=== PATIENT | female | born 1975 | race Caucasian/White ===

== ENCOUNTER 2022-08-12 13:46 | Inpatient (IN) | payer MEDICAID ==
[~2022-08-12] VITALS: Ht 152.4 cm; Wt 77.2 kg
[~2022-08-12 13:46] MED LIST: ONDA4TAB12 PO
[2022-08-12 14:16] LABS: BASOPHILS # (AUTO) 0.1 X10'3 (0-0.2); BASOPHILS % (AUTO) 0.8 % (0-1); EOSINOPHILS # (AUTO) 0.2 X10'3 (0-0.9); EOSINOPHILS % (AUTO) 3.3 % (0-6); HEMATOCRIT 41.7 % (35.0-45.0); HEMOGLOBIN 13.7 g/dl (12.0-16.0); LYMPHOCYTES % (AUTO) 30.7 % (21-51); MEAN CORPUSCULAR HEMOGLOBIN 29.8 PG (27.0-31.0); MEAN CORPUSCULAR VOLUME 90.5 FL (78-98); MEAN PLATELET VOLUME 8.9 FL (7.4-10.4); MONOCYTES # (AUTO) 0.5 X10'3 (0-0.9); MONOCYTES % (AUTO) 7.1 % (2-12); NEUTROPHILS # (AUTO) 3.8 X10'3 (1.8-7.7); NEUTROPHILS % (AUTO) 58.1 % (42-75); PLATELET COUNT 306 X10'3 (140-440); RED BLOOD COUNT 4.61 X10'6 (4.20-5.60); RED CELL DISTRIBUTION WIDTH 17.7 % (11.5-14.5); WHITE BLOOD COUNT 6.5 X10'3 (4.5-11.0)
[2022-08-12 14:33] LABS: ALANINE AMINOTRANSFERASE 36 U/L (12-78); ALBUMIN 3.4 G/DL (3.4-5.0); ALBUMIN/GLOBULIN RATIO 0.7 (1.1-1.5); ALKALINE PHOSPHATASE 126 IU/L (46-116); ANION GAP 7 (8-16); ASPARTATE AMINO TRANSFERASE 40 U/L (10-37); BILIRUBIN,TOTAL 0.7 MG/DL (0.1-1.0); BLOOD UREA NITROGEN 11 MG/DL (7-18); BUN/CREATININE RATIO 8.5 (6.6-38.0); CALCIUM 9.1 MG/DL (8.5-10.1); CHLORIDE 106 MMOL/L (99-107); CREATININE 1.29 MG/DL (0.40-0.90); MAGNESIUM 1.6 MG/DL (1.5-2.4); POTASSIUM 3.8 MMOL/L (3.5-5.1); SODIUM 137 MMOL/L (135-145); TOTAL PROTEIN 8.2 G/DL (6.4-8.2); eGFR 44 ML/MIN
[2022-08-12 14:40] LABS: GLUCOSE 114 MG/DL (70-104)
[2022-08-12 18:11] LABS: D-DIMER 0.71 MG/L FEU (0-0.50)
[2022-08-12 19:54] LABS: APTT 26 SECONDS (22-32)
[2022-08-12] MEDS ORDERED: potassium Cl 40MEQ/1/2NS 520ml 520 ML IV PRN (21:45)
[2022-08-12] MEDS ORDERED: magnesium hydroxide 30ml (MOM) UD suspension PO PRN (21:45)
[2022-08-12] MEDS ORDERED: magnesium Cl slow-release 64mg tablet PO PRN (21:45)
[2022-08-12] MEDS ORDERED: ondansetron/PF 4mg/2ml inj IV PRN (21:45)
[2022-08-12] MEDS ORDERED: morphine 2 MG/ML inj. syringe IV PRN ×2 (21:45)
[2022-08-12] MEDS ORDERED: mag hydrox/Alum hydrox/simeth 30ml oral suspension PO PRN (21:45)
[2022-08-12] MEDS ORDERED: HYDROcodone/acetaminophen 10/325mg tab PO PRN (21:45)
[2022-08-12] MEDS ORDERED: HYDROcodone/acetaminophen 5mg/325mg tablet PO PRN (21:45)
[2022-08-12] MEDS ORDERED: potassium Cl 20 mEq SR tablet PO PRN ×2 (21:45)
[2022-08-12] MEDS ORDERED: magnesium 4gm in 100ml NS 100 ML IV PRN (21:45)
[2022-08-12] MEDS ORDERED: ipratropium/albuterol 3ml nebule NEB PRN (21:45)
[2022-08-12] MEDS ORDERED: acetaminophen 325mg tablet PO PRN (21:45)
[2022-08-12] MEDS ORDERED: ceFAZolin 1000mg inj IV SCH ×2 (22:50→22:57)
[2022-08-12] MEDS ORDERED: CefTRIAXone/D5W-Rocephin 1gm 50 ML IV SCH ×2 (23:25→23:29)
[2022-08-12 23:50] VITALS: BP 170/110
--- NOTE | 2022-08-13 00:16 | NUR ---
notified of pts b/p of 170/110.new order to give iv hydralazine 10mg prn 4hrly for b/p morethan 160
[2022-08-13] MEDS: hydrALAZINE 20mg/ml inj. IV PRN ×2 (00:23→17:06)
[2022-08-13] MEDS: ceFAZolin/D5W- 1GM premix 50 ML IV SCH ×3 (01:06→17:07)
[2022-08-13 01:14] VITALS: BP 151/90
[2022-08-13 02:00] VITALS: BP 148/85
[2022-08-13] MEDS ORDERED: LEVO137T2 PO (05:16)
[2022-08-13 06:00] VITALS: BP 131/81
[2022-08-13 06:29] LABS: BASOPHILS % (AUTO) 0.6 % (0-1); EOSINOPHILS # (AUTO) 0.3 X10'3 (0-0.9); EOSINOPHILS % (AUTO) 4.6 % (0-6); LYMPHOCYTES # (AUTO) 2.3 X10'3 (1.1-4.8); LYMPHOCYTES % (AUTO) 34.7 % (21-51); MEAN CORPUSCULAR HEMOGLOBIN 29.1 PG (27.0-31.0); MEAN CORPUSCULAR HGB CONC 32.4 g/dL (33.0-36.5); MEAN CORPUSCULAR VOLUME 89.9 FL (78-98); MEAN PLATELET VOLUME 8.8 FL (7.4-10.4); MONOCYTES # (AUTO) 0.6 X10'3 (0-0.9); MONOCYTES % (AUTO) 8.3 % (2-12); NEUTROPHILS # (AUTO) 3.5 X10'3 (1.8-7.7); NEUTROPHILS % (AUTO) 51.8 % (42-75); PLATELET COUNT 282 X10'3 (140-440); RED BLOOD COUNT 4.45 X10'6 (4.20-5.60); RED CELL DISTRIBUTION WIDTH 17.2 % (11.5-14.5); WHITE BLOOD COUNT 6.7 X10'3 (4.5-11.0)
--- NOTE | 2022-08-13 06:56 | NUR ---
Problems reprioritized. Patient report given, questions answered & plan of care reviewed with cyndy HUTTON.
[2022-08-13] MEDS ORDERED: levoTHYROXINE 100mcg tablet PO SCH (07:00)
[2022-08-13 07:13] LABS: ALANINE AMINOTRANSFERASE 27 U/L (12-78); ALBUMIN 2.9 G/DL (3.4-5.0); ALBUMIN/GLOBULIN RATIO 0.7 (1.1-1.5); ALKALINE PHOSPHATASE 113 IU/L (46-116); ANION GAP 10 (8-16); ASPARTATE AMINO TRANSFERASE 35 U/L (10-37); BILIRUBIN,TOTAL 0.5 MG/DL (0.1-1.0); BLOOD UREA NITROGEN 9 MG/DL (7-18); BUN/CREATININE RATIO 7.5 (6.6-38.0); CALCIUM 8.6 MG/DL (8.5-10.1); CHLORIDE 109 MMOL/L (99-107); MAGNESIUM 1.4 MG/DL (1.5-2.4); POTASSIUM 3.5 MMOL/L (3.5-5.1); SODIUM 141 MMOL/L (135-145); TOTAL CARBON DIOXIDE 22.4 MMOL/L (24-32); TOTAL PROTEIN 7.2 G/DL (6.4-8.2); eGFR 48 ML/MIN
[2022-08-13 07:21] LABS: GLUCOSE 96 MG/DL (70-104)
[2022-08-13] MEDS: K and/or MAG REPLACEMENT MC SCH ×2 (08:00→18:57)
[2022-08-13] MEDS ORDERED: furosemide 10 MG/1 ML 10ml inj IV SCH (08:00)
[2022-08-13] MEDS: docusate sod 100mg capsule PO SCH ×2 (10:05→19:33)
[2022-08-13] MEDS: enoxaparin 40mg/0.4ml syringe SUBCUT SCH (10:28)
[2022-08-13 12:00] VITALS: BP 144/94
[2022-08-13 16:53] VITALS: BP 157/101
[2022-08-13] MEDS: furosemide 10 MG/1 ML 10ml inj IV SCH (19:30)
[2022-08-13 22:00] VITALS: BP 144/85
[2022-08-14] MEDS: ceFAZolin/D5W- 1GM premix 50 ML IV SCH ×2 (01:17→09:52)
[2022-08-14 01:55] VITALS: BP 147/98
[2022-08-14 06:00] VITALS: BP 149/94
--- NOTE | 2022-08-14 06:33 | NUR ---
Report received from Reina Bishop and will continue to monitor.
[2022-08-14] MEDS: docusate sod 100mg capsule PO SCH (08:00)
[2022-08-14] MEDS ORDERED: levoTHYROXINE 125mcg tablet PO SCH (09:15)
[2022-08-14 09:18] LABS: BASOPHILS % (AUTO) 0.5 % (0-1); EOSINOPHILS # (AUTO) 0.3 X10'3 (0-0.9); EOSINOPHILS % (AUTO) 3.8 % (0-6); HEMATOCRIT 46.8 % (35.0-45.0); HEMOGLOBIN 15.2 g/dl (12.0-16.0); LYMPHOCYTES # (AUTO) 2.9 X10'3 (1.1-4.8); LYMPHOCYTES % (AUTO) 34.3 % (21-51); MEAN CORPUSCULAR HEMOGLOBIN 29.2 PG (27.0-31.0); MEAN CORPUSCULAR HGB CONC 32.4 g/dL (33.0-36.5); MEAN CORPUSCULAR VOLUME 90.1 FL (78-98); MEAN PLATELET VOLUME 9.2 FL (7.4-10.4); MONOCYTES # (AUTO) 0.8 X10'3 (0-0.9); MONOCYTES % (AUTO) 10.2 % (2-12); NEUTROPHILS # (AUTO) 4.3 X10'3 (1.8-7.7); NEUTROPHILS % (AUTO) 51.2 % (42-75); PLATELET COUNT 323 X10'3 (140-440); RED CELL DISTRIBUTION WIDTH 17.4 % (11.5-14.5); WHITE BLOOD COUNT 8.3 X10'3 (4.5-11.0)
[2022-08-14 09:23] LABS: ALANINE AMINOTRANSFERASE 23 U/L (12-78); ALBUMIN 3.2 G/DL (3.4-5.0); ALBUMIN/GLOBULIN RATIO 0.7 (1.1-1.5); ALKALINE PHOSPHATASE 114 IU/L (46-116); ANION GAP 14 (8-16); ASPARTATE AMINO TRANSFERASE 36 U/L (10-37); BILIRUBIN,TOTAL 0.8 MG/DL (0.1-1.0); BLOOD UREA NITROGEN 14 MG/DL (7-18); BUN/CREATININE RATIO 11.1 (6.6-38.0); CALCIUM 9.3 MG/DL (8.5-10.1); CHLORIDE 106 MMOL/L (99-107); CREATININE 1.26 MG/DL (0.40-0.90); GLUCOSE 93 MG/DL (70-104); MAGNESIUM 1.5 MG/DL (1.5-2.4); POTASSIUM 3.2 MMOL/L (3.5-5.1); SODIUM 141 MMOL/L (135-145); TOTAL CARBON DIOXIDE 21.2 MMOL/L (24-32); eGFR 46 ML/MIN
[2022-08-14] MEDS: enoxaparin 40mg/0.4ml syringe SUBCUT SCH (09:53)
[2022-08-14] MEDS: furosemide 10 MG/1 ML 10ml inj IV SCH (11:38)
[2022-08-14 11:45] VITALS: BP 147/97
[2022-08-14 12:41] VITALS: BP 147/98
[2022-08-14] MEDS ORDERED: LEVO150C4 PO (13:34)
[2022-08-14] MEDS ORDERED: FURO20TA4 PO (13:34)
[2022-08-14] MEDS ORDERED: POTA-207 PO (13:34)
[2022-08-14] MEDS ORDERED: CARV3.122 PO (13:34)
== END 2022-08-14 16:20 | disposition home or self-care (01) | DRG 194 ==
LOC: ER 13:47 → ED HOLD 21:51 → PCU 3S 23:39
PROVIDERS: ADMIT Internal Medicine; ATTEND Family Medicine
PROC: CB121ZZ Planar Nuclear Medicine Imaging of Lungs and Bronchi using Technetium 99m (Tc-99m) (ICD-10-PCS; principal; 2022-08-13)
DX: I13.0 Hypertensive heart and chronic kidney disease with heart failure and stage 1 through stage 4 chronic kidney disease, or unspecified chronic kidney disease (principal); L03.115 Cellulitis of right lower limb; E03.9 Hypothyroidism, unspecified; E04.2 Nontoxic multinodular goiter; E78.00 Pure hypercholesterolemia, unspecified; E87.6 Hypokalemia; L03.114 Cellulitis of left upper limb; L03.113 Cellulitis of right upper limb; I50.33 Acute on chronic diastolic (congestive) heart failure; F15.10 Other stimulant abuse, uncomplicated; F12.90 Cannabis use, unspecified, uncomplicated; F17.210 Nicotine dependence, cigarettes, uncomplicated; I07.1 Rheumatic tricuspid insufficiency; L03.116 Cellulitis of left lower limb; N18.9 Chronic kidney disease, unspecified; R74.01 Elevation of levels of liver transaminase levels; Z79.899 Other long term (current) drug therapy; Z90.49 Acquired absence of other specified parts of digestive tract; Z71.6 Tobacco abuse counseling
CPT/HCPCS: 36415; 71045; 76536; 78582; 80053; 83735; 83880; 84439; 84443; 84484; 85025; 85379; 85730; 87081; 93306; 94760; 99285; A9539; A9540; G0378; J0360; J0690; J1650; J1940

== ENCOUNTER 2022-09-24 14:38 | Emergency (ER) | payer MEDICAID ==
[~2022-09-24] VITALS: Ht 154.9 cm; Wt 76.8 kg
[~2022-09-24 14:38] MED LIST changes: +CARV3.122 PO; +FURO20TA4 PO; +LEVO150C4 PO; -ONDA4TAB12 PO
[2022-09-24 15:15] LABS: ALANINE AMINOTRANSFERASE 27 U/L (12-78); ALBUMIN 3.8 G/DL (3.4-5.0); ALBUMIN/GLOBULIN RATIO 0.8 (1.1-1.5); ALKALINE PHOSPHATASE 124 IU/L (46-116); ANION GAP 13 (8-16); ASPARTATE AMINO TRANSFERASE 35 U/L (10-37); BLOOD UREA NITROGEN 12 MG/DL (7-18); BUN/CREATININE RATIO 10.6 (6.6-38.0); CALCIUM 9.7 MG/DL (8.5-10.1); CHLORIDE 106 MMOL/L (99-107); CREATININE 1.13 MG/DL (0.40-0.90); GLUCOSE 112 MG/DL (70-104); POTASSIUM 3.5 MMOL/L (3.5-5.1); SODIUM 142 MMOL/L (135-145); TOTAL CARBON DIOXIDE 22.6 MMOL/L (24-32); TOTAL PROTEIN 8.8 G/DL (6.4-8.2); eGFR 52 ML/MIN
[2022-09-24 15:22] LABS: MAGNESIUM 1.6 MG/DL (1.5-2.4)
[2022-09-24 16:52] LABS: BASOPHILS % (AUTO) 0.5 % (0-1); EOSINOPHILS # (AUTO) 0.1 X10'3 (0-0.9); LYMPHOCYTES # (AUTO) 1.1 X10'3 (1.1-4.8); MEAN CORPUSCULAR HEMOGLOBIN 29.4 PG (27.0-31.0); MEAN PLATELET VOLUME 8.9 FL (7.4-10.4)
[2022-09-24 16:54] LABS: EOSINOPHILS % (AUTO) 1.1 % (0-6); HEMATOCRIT 52.6 % (35.0-45.0); HEMOGLOBIN 17.4 g/dl (12.0-16.0); LYMPHOCYTES % (AUTO) 11.2 % (21-51); MONOCYTES # (AUTO) 0.9 X10'3 (0-0.9); MONOCYTES % (AUTO) 9.3 % (2-12); NEUTROPHILS # (AUTO) 7.4 X10'3 (1.8-7.7); NEUTROPHILS % (AUTO) 77.9 % (42-75); PLATELET COUNT 367 X10'3 (140-440); RED BLOOD COUNT 5.91 X10'6 (4.20-5.60); RED CELL DISTRIBUTION WIDTH 16.3 % (11.5-14.5); WHITE BLOOD COUNT 9.5 X10'3 (4.5-11.0)
[2022-09-24] MEDS ORDERED: albuterol 2.5 MG/3 ML nebule NEB ONE (20:35)
[2022-09-24] MEDS ORDERED: methylPREDNISolone sod succ 125mg/2ml vial IV ONE (21:15)
[2022-09-24] MEDS ORDERED: carvedilol 6.25mg tablet PO SCH (21:15)
[2022-09-24] MEDS ORDERED: carvedilol 6.25mg tablet PO ONE (21:15)
[2022-09-24] MEDS ORDERED: DEC4T PO (21:17)
[2022-09-24] MEDS ORDERED: ALBU6.7H14 INH (21:17)
[2022-09-24] MEDS ORDERED: ipratropium/albuterol 3ml nebule NEB ONE (21:20)
[2022-09-24] MEDS ORDERED: dexamethasone 4mg tablet PO ONE (21:20)
[2022-09-24 22:08] VITALS: BP 109/84
== END 2022-09-24 22:10 | disposition home or self-care (01) ==
LOC: ER 14:39
DX: J45.901 Unspecified asthma with (acute) exacerbation (principal); I11.0 Hypertensive heart disease with heart failure; I50.9 Heart failure, unspecified; E78.00 Pure hypercholesterolemia, unspecified; E03.9 Hypothyroidism, unspecified; F12.90 Cannabis use, unspecified, uncomplicated; Z90.49 Acquired absence of other specified parts of digestive tract
CPT/HCPCS: 36415; 71045; 80053; 83735; 83880; 84484; 85025; 93005; 94640; 96374; 99285; J2930; A4615

== ENCOUNTER 2022-10-14 07:32 | Day surgery (SDC) | payer MEDICAID ==
[2022-10-05 16:03] LABS: BASOPHILS # (AUTO) 0.1 X10'3 (0-0.2); BASOPHILS % (AUTO) 0.6 % (0-1); EOSINOPHILS # (AUTO) 0.2 X10'3 (0-0.9); EOSINOPHILS % (AUTO) 2.4 % (0-6); LYMPHOCYTES # (AUTO) 3.1 X10'3 (1.1-4.8); LYMPHOCYTES % (AUTO) 29.7 % (21-51); MEAN CORPUSCULAR HEMOGLOBIN 29.4 PG (27.0-31.0); MEAN CORPUSCULAR HGB CONC 32.7 g/dL (33.0-36.5); MEAN PLATELET VOLUME 8.6 FL (7.4-10.4); MONOCYTES # (AUTO) 0.7 X10'3 (0-0.9); MONOCYTES % (AUTO) 6.7 % (2-12); NEUTROPHILS # (AUTO) 6.3 X10'3 (1.8-7.7); NEUTROPHILS % (AUTO) 60.6 % (42-75); PRE OP HEMATOCRIT 46.2 % (35.0-45.0); PRE OP HEMOGLOBIN 15.1 g/dL (12.0-16.0); PRE OP PLATELET COUNT 338 X10'3 (140-440); RED BLOOD COUNT 5.13 X10'6 (4.20-5.60)
[2022-10-05 16:23] LABS: ALBUMIN 3.2 G/DL (3.4-5.0); ALBUMIN/GLOBULIN RATIO 0.7 (1.1-1.5); ALKALINE PHOSPHATASE 105 IU/L (46-116); BLOOD UREA NITROGEN 18 MG/DL (7-18); BUN/CREATININE RATIO 17.5 (6.6-38.0); CALCIUM 9.1 MG/DL (8.5-10.1); CHLORIDE 106 MMOL/L (99-107); CREATININE 1.03 MG/DL (0.40-0.90); PRE OP ALT 31 U/L (30-65); PRE OP ANION GAP 6 (8-16); PRE OP AST 45 U/L (10-37); PRE OP BILIRUB, TOTAL 0.4 MG/DL (0.0-1.0); PRE OP GLUCOSE 95 MG/DL (70-104); PRE OP POTASSIUM 4.2 MMOL/L (3.4-5.1); PRE OP SODIUM 138 MMOL/L (135-145); TOTAL CARBON DIOXIDE 25.6 MMOL/L (24-32); TOTAL PROTEIN 7.6 G/DL (6.4-8.2); eGFR 57 ML/MIN
[2022-10-05 16:25] LABS: HCG SERUM QL NEGATIVE
[~2022-10-14] VITALS: Ht 154.9 cm; Wt 76.1 kg
[2022-10-14] VITALS (17 sets, daily range): BP systolic 76–115; BP diastolic 44–80
[~2022-10-14 07:32] MED LIST changes: +ALBU8HFA INH; +BUPIVAcaine/PF 5 mg/ml 10ml ONE; -CARV3.122 PO; +CARV6.2553 PO; +DOCUMENT DATE & TIME OF BETA-BLOCKER PO ONE; +FURO-150 PO; -FURO20TA4 PO; -LEVO150C4 PO; +LEVO175T7 PO; +LISI1TAB53 PO; +POTA-82 PO; +albuterol 2.5 MG/3 ML nebule NEB ONE; +cefazolin 2gm/D5W 100mL 100 ML IV ONE; +famotidine 20mg tablet PO ONE; +ringers solution, lacted 500 ML IV SCH
[2022-10-14] MEDS ORDERED: morphine 4 MG/ML inj SYRINge IV PRN (08:25)
[2022-10-14] MEDS ORDERED: ringers solution, lacted 1,000 ML IV SCH (08:25)
[2022-10-14] MEDS ORDERED: meperidine/PF 25mg/ml syringe IV PRN ×3 (08:25)
[2022-10-14] MEDS ORDERED: morphine 2 MG/ML inj. syringe IV PRN (08:25)
[2022-10-14] MEDS ORDERED: ondansetron/PF 4mg/2ml inj IV PRN (08:25)
[2022-10-14] MEDS ORDERED: proCHLORperazine 10 MG/2 ml inj IV PRN (08:25)
[2022-10-14] MEDS ORDERED: LIDOcaine 0.5% (5mg/ml) 50ml vial ONE (08:31)
[2022-10-14] MEDS ORDERED: albuterol 2.5 MG/3 ML nebule NEB STA ×2 (08:36→08:41)
[2022-10-14] MEDS ORDERED: midazolam 1 mg/ML 2ml injection ONE (09:48)
[2022-10-14] MEDS ORDERED: fentaNYL/PF 50MCG/1 ML 2ML syringe ONE (09:48)
[2022-10-14] MEDS ORDERED: BUPIVAcaine/PF 5 mg/ml 10ml IJ ONE (10:06)
--- NOTE | 2022-10-14 10:11 | NUR ---
Received from OR via [facility], accompanied by Anesthesiologist and report given by DARSHANA Anesthesiologist. PATIENT WAKING UP, DENIES PAIN, V/S WNL, PIV 20G TO RIGHT HAND, LEFT WRIST DRESSING C/D/I. ICE AND ELEVATED LUE. Addendum: 10/14/22 at 1039 by Maury Palacios RN Amended: Links added.
--- NOTE | 2022-10-14 11:49 | NUR ---
ALL DISCHARGE CRITERIA HAS BEEN MET. VSS, PAIN AT A TOLERABLE LEVEL, ABLE TO SAFELY AMBULATE AND TRANSFER SELF. IV TAKEN OUT WITHOUT ANY COMPLICATIONS. ALL DISCHARGE INSTRUCTIONS COVERED WITH PATIENT AND ALL QUESTIONS ANSWERED. PATIENT TAKEN OUT VIA WHEELCHAIR WITH ALL BELONGINGS TO PERSONAL VEHICLE WHERE FAMILY DROVE PATIENT HOME. Addendum: 10/14/22 at 1154 by Maury Palacios RN Amended: Links added.
== END 2022-10-14 11:46 | disposition home or self-care (01) ==
LOC: PAS 07:32
PROVIDERS: ATTEND Orthopaedic Surgery Hand Surgery
DX: G56.02 Carpal tunnel syndrome, left upper limb (principal); I11.0 Hypertensive heart disease with heart failure; I50.9 Heart failure, unspecified; F17.210 Nicotine dependence, cigarettes, uncomplicated; J45.909 Unspecified asthma, uncomplicated; Z87.442 Personal history of urinary calculi; Z90.49 Acquired absence of other specified parts of digestive tract; Z79.899 Other long term (current) drug therapy; Z82.3 Family history of stroke; Z82.5 Family history of asthma and other chronic lower respiratory diseases
CPT/HCPCS: 36415; 64721; 80053; 84703; 85025; 94640; J2250; J3010; J3490; J7030; J7120; Z7506; Z7512; A4215

== ENCOUNTER → 2022-11-11 | Day surgery (SDC) | payer MEDICAID ==
[2022-11-07 15:07] LABS: BASOPHILS # (AUTO) 0.1 X10'3 (0-0.2); BASOPHILS % (AUTO) 0.8 % (0-1); EOSINOPHILS # (AUTO) 0.2 X10'3 (0-0.9); EOSINOPHILS % (AUTO) 3.1 % (0-6); LYMPHOCYTES # (AUTO) 3.2 X10'3 (1.1-4.8); MEAN CORPUSCULAR HEMOGLOBIN 29.7 PG (27.0-31.0); MEAN CORPUSCULAR HGB CONC 33.2 g/dL (33.0-36.5); MEAN CORPUSCULAR VOLUME 89.5 FL (78-98); MEAN PLATELET VOLUME 8.6 FL (7.4-10.4); MONOCYTES # (AUTO) 0.5 X10'3 (0-0.9); MONOCYTES % (AUTO) 6.9 % (2-12); NEUTROPHILS # (AUTO) 3.3 X10'3 (1.8-7.7); NEUTROPHILS % (AUTO) 45.2 % (42-75); PRE OP HEMATOCRIT 45.9 % (35.0-45.0); PRE OP HEMOGLOBIN 15.3 g/dL (12.0-16.0); PRE OP PLATELET COUNT 340 X10'3 (140-440); RED BLOOD COUNT 5.13 X10'6 (4.20-5.60); RED CELL DISTRIBUTION WIDTH 17.2 % (11.5-14.5)
[2022-11-07 15:19] LABS: ALBUMIN 3.6 G/DL (3.4-5.0); ALBUMIN/GLOBULIN RATIO 0.8 (1.1-1.5); ALKALINE PHOSPHATASE 130 IU/L (46-116); BLOOD UREA NITROGEN 16 MG/DL (7-18); BUN/CREATININE RATIO 13.3 (10.0-20.0); CALCIUM 9.3 MG/DL (8.5-10.1); CHLORIDE 106 MMOL/L (99-107); PRE OP ALT 31 U/L (30-65); PRE OP ANION GAP 9 (8-16); PRE OP AST 46 U/L (10-37); PRE OP BILIRUB, TOTAL 0.3 MG/DL (0.0-1.0); PRE OP POTASSIUM 3.8 MMOL/L (3.4-5.1); PRE OP SODIUM 139 MMOL/L (135-145); TOTAL CARBON DIOXIDE 23.7 MMOL/L (24-32); TOTAL PROTEIN 8.4 G/DL (6.4-8.2); eGFR 48 ML/MIN
[2022-11-07 15:30] LABS: PRE OP GLUCOSE 86 MG/DL (70-104)
[2022-11-11] VITALS (7 sets, daily range): BP systolic 89–137; BP diastolic 64–116
[~2022-11-11] VITALS: Ht 154.9 cm; Wt 74.5 kg
[~2022-11-11] MED LIST changes: +BUPIVAcaine/PF 2.5 mg/ml (0.25%) 30ml vial ONE; -BUPIVAcaine/PF 5 mg/ml 10ml ONE; +HYDR25TA5 PO; +LIDOcaine 0.5% (5mg/ml) 50ml vial ONE; -LISI1TAB53 PO; +LISI40TA13 PO; +fentaNYL/PF 50MCG/1 ML 2ML syringe ONE; +meperidine/PF 25mg/ml syringe IV PRN; +midazolam 1 mg/ML 2ml injection ONE; +morphine 2 MG/ML inj. syringe IV PRN; +morphine 4 MG/ML inj SYRINge IV PRN; +ondansetron/PF 4mg/2ml inj IV PRN; +proCHLORperazine 10 MG/2 ml inj IV PRN; +ringers solution, lacted 1,000 ML IV SCH; -ringers solution, lacted 500 ML IV SCH
--- NOTE | 2022-11-11 08:10 | NUR ---
Received from OR via , accompanied by Anesthesiologist DARSHANA AND OR NURSE and report given by Anesthesiolgist. PT IS DROWSY YET ABLE TO FOLLOW VERBAL COMMANDS. RT WRIST IN VALERI WRAP; CDI. 20G TO LT HAND. VSS; O2 DIPS DUE TO PT SEDATION AND EVERDAY SMOKER. Addendum: 11/11/22 at 0830 by Lisbeth Panda RN Amended: Links added.
--- NOTE | 2022-11-11 09:10 | NUR ---
PATIENT A&OX4, DENIES PAIN, V/S WNL, SCD OFF, RIGHT WRIST DRESSING CDI W/ SLING. ICE AND ELEVATED RUE. I HAVE REVIEWED D/C INSTRUCTIONS WITH PATIENT INSTRUCTIONS WITH PATIENT AND THEY HAVE VERBALIZED UNDERSTANDING. PATIENT D/C HOME WITH ALL BELONGINGS AND FAMILY TRANSPORTED PATIENT HOME. Addendum: 11/11/22 at 0918 by Lisbeth Panda RN Amended: Links added.
== END | disposition home or self-care (01) ==
LOC: PAS 05:44
PROVIDERS: ATTEND Orthopaedic Surgery Hand Surgery
DX: G56.01 Carpal tunnel syndrome, right upper limb (principal); I10 Essential (primary) hypertension; E03.9 Hypothyroidism, unspecified; F17.210 Nicotine dependence, cigarettes, uncomplicated; J45.909 Unspecified asthma, uncomplicated; Z87.442 Personal history of urinary calculi; Z79.899 Other long term (current) drug therapy; Z90.49 Acquired absence of other specified parts of digestive tract
CPT/HCPCS: 36415; 64721; 80053; 82948; 85025; J0690; J2250; J3010; J3490; J7030; J7120; Z7506; Z7512; A4215; A4615; A6449

== ENCOUNTER 2023-04-03 09:42 | Emergency (ER) | payer MEDICAID ==
[~2023-04-03] VITALS: Ht 154.9 cm; Wt 75.0 kg
[~2023-04-03 09:42] MED LIST changes: -BUPIVAcaine/PF 2.5 mg/ml (0.25%) 30ml vial ONE; -DOCUMENT DATE & TIME OF BETA-BLOCKER PO ONE; -LIDOcaine 0.5% (5mg/ml) 50ml vial ONE; +POTA-366 PO; -POTA-82 PO; -albuterol 2.5 MG/3 ML nebule NEB ONE; -cefazolin 2gm/D5W 100mL 100 ML IV ONE; -famotidine 20mg tablet PO ONE; -fentaNYL/PF 50MCG/1 ML 2ML syringe ONE; -meperidine/PF 25mg/ml syringe IV PRN; -midazolam 1 mg/ML 2ml injection ONE; -morphine 2 MG/ML inj. syringe IV PRN; -morphine 4 MG/ML inj SYRINge IV PRN; -ondansetron/PF 4mg/2ml inj IV PRN; -proCHLORperazine 10 MG/2 ml inj IV PRN; -ringers solution, lacted 1,000 ML IV SCH
[2023-04-03 09:45] VITALS: TEMP 97.8
[2023-04-03 10:19] LABS: MEAN CORPUSCULAR HEMOGLOBIN 30.6 PG (27.0-31.0); MEAN CORPUSCULAR HGB CONC 33.2 g/dL (33.0-36.5); MEAN CORPUSCULAR VOLUME 92.1 FL (78-98)
[2023-04-03 10:20] LABS: BASOPHILS % (AUTO) 0.4 % (0-1); EOSINOPHILS # (AUTO) 0.1 X10'3 (0-0.9); EOSINOPHILS % (AUTO) 0.9 % (0-6); HEMATOCRIT 49.1 % (35.0-45.0); HEMOGLOBIN 16.3 g/dl (12.0-16.0); LYMPHOCYTES # (AUTO) 1.7 X10'3 (1.1-4.8); LYMPHOCYTES % (AUTO) 16.2 % (21-51); MEAN PLATELET VOLUME 9.6 FL (7.4-10.4); MONOCYTES # (AUTO) 0.6 X10'3 (0-0.9); MONOCYTES % (AUTO) 5.7 % (2-12); NEUTROPHILS % (AUTO) 76.8 % (42-75); PLATELET COUNT 217 X10'3 (140-440); RED BLOOD COUNT 5.33 X10'6 (4.20-5.60); RED CELL DISTRIBUTION WIDTH 15.9 % (11.5-14.5); WHITE BLOOD COUNT 10.4 X10'3 (4.5-11.0)
[2023-04-03 10:31] LABS: ALANINE AMINOTRANSFERASE 65 U/L (12-78); ALBUMIN 3.7 G/DL (3.4-5.0); ALBUMIN/GLOBULIN RATIO 0.8 (1.1-1.5); ALKALINE PHOSPHATASE 118 IU/L (46-116); ANION GAP 10 (8-16); ASPARTATE AMINO TRANSFERASE 63 U/L (10-37); BILIRUBIN,TOTAL 0.8 MG/DL (0.1-1.0); BLOOD UREA NITROGEN 24 MG/DL (7-18); BUN/CREATININE RATIO 15.3 (10.0-20.0); CALCIUM 9.7 MG/DL (8.5-10.1); CHLORIDE 105 MMOL/L (99-107); CREATININE 1.57 MG/DL (0.40-0.90); POTASSIUM 3.5 MMOL/L (3.5-5.1); SODIUM 140 MMOL/L (135-145); TOTAL CARBON DIOXIDE 25.4 MMOL/L (24-32); TOTAL PROTEIN 8.5 G/DL (6.4-8.2); eCRCL 33 ML/MIN; eGFR 35 ML/MIN
[2023-04-03 11:01] LABS: GLUCOSE 123 MG/DL (70-104); PRO BRAIN NATRIURETIC PEPTIDE 4928 PG/ML (0-125)
--- NOTE | 2023-04-03 13:14 | NUR ---
PT BROUGHT TO RM 13 VIA WC BY AUDIOVISUAL EQUIPMENT OPERATOR. PT PLACED ON SUEDE CLEANER ALL LEADS ON AND FUNCTIONING
[2023-04-03] MEDS ORDERED: dexamethasone sod phosphate 10mg/ml inj IV STA ×2 (14:54→15:05)
[2023-04-03] MEDS ORDERED: ondansetron/PF 4mg/2ml inj IV ONE (15:05)
[2023-04-03] MEDS ORDERED: morphine 4 MG/ML inj SYRINge IV ONE (15:05)
[2023-04-03] MEDS ORDERED: colchicine 0.6mg tablet PO ONE (15:50)
[2023-04-03 16:06] VITALS: O2SAT 100
[2023-04-03 18:19] LABS: URIC ACID 11.8 MG/DL (2.5-6.2)
[2023-04-03] MEDS ORDERED: COLC1TAB2 PO (18:25)
[2023-04-03 20:20] VITALS: BP 123/86; PULSE 89; RESP 22
== END 2023-04-03 20:51 | disposition home or self-care (01) ==
LOC: ER 09:43
DX: M10.9 Gout, unspecified (principal); I11.0 Hypertensive heart disease with heart failure; I50.9 Heart failure, unspecified; E78.00 Pure hypercholesterolemia, unspecified; E03.9 Hypothyroidism, unspecified; F12.90 Cannabis use, unspecified, uncomplicated; Z79.899 Other long term (current) drug therapy
CPT/HCPCS: 36415; 71045; 80053; 83880; 84145; 84484; 84550; 85025; 93005; 96374; 96375; 99285; J1100; J2270; J2405; A4615

== ENCOUNTER 2023-04-22 14:27 | Emergency (ER) | payer MEDICAID ==
[~2023-04-22] VITALS: Ht 154.9 cm; Wt 73.2 kg
[~2023-04-22 14:27] MED LIST changes: +COLC1TAB2 PO
[2023-04-22 14:33] VITALS: BP 115/82; PULSE 92; RESP 20; TEMP 97.9; O2SAT 97
== END 2023-04-22 21:09 | disposition left against medical advice (07) ==
LOC: ER 14:27
DX: M79.672 Pain in left foot (principal); Z53.21 Procedure and treatment not carried out due to patient leaving prior to being seen by health care provider
CPT/HCPCS: 99281

== ENCOUNTER 2023-10-16 14:51 | Inpatient (IN) | payer MEDICAID ==
[~2023-10-16] VITALS: Ht 154.9 cm; Wt 82.8 kg
[~2023-10-16 14:51] MED LIST changes: +ALLO300T10 PO; -COLC1TAB2 PO; +FURO-149 PO; +LEVO200C2 PO; +PROB1TAB2 PO
[2023-10-16 17:43] LABS: BASOPHILS % (AUTO) 0.6 % (0-1); EOSINOPHILS # (AUTO) 0.1 X10'3 (0-0.9); EOSINOPHILS % (AUTO) 1.2 % (0-6); HEMATOCRIT 44.4 % (35.0-45.0); HEMOGLOBIN 14.1 g/dl (12.0-16.0); LYMPHOCYTES # (AUTO) 1.7 X10'3 (1.1-4.8); LYMPHOCYTES % (AUTO) 25.4 % (21-51); MEAN CORPUSCULAR HGB CONC 31.9 g/dL (33.0-36.5); MEAN CORPUSCULAR VOLUME 91.1 FL (78-98); MEAN PLATELET VOLUME 9.4 FL (7.4-10.4); MONOCYTES # (AUTO) 0.5 X10'3 (0-0.9); NEUTROPHILS # (AUTO) 4.3 X10'3 (1.8-7.7); NEUTROPHILS % (AUTO) 65.8 % (42-75); PLATELET COUNT 301 X10'3 (140-440); RED BLOOD COUNT 4.87 X10'6 (4.20-5.60); RED CELL DISTRIBUTION WIDTH 19.8 % (11.5-14.5); WHITE BLOOD COUNT 6.6 X10'3 (4.5-11.0)
[2023-10-16 17:59] LABS: ALANINE AMINOTRANSFERASE 19 U/L (12-78); ALBUMIN 3.3 G/DL (3.4-5.0); ALBUMIN/GLOBULIN RATIO 0.9 (1.1-1.5); ALKALINE PHOSPHATASE 164 IU/L (46-116); ANION GAP 8 (8-16); ASPARTATE AMINO TRANSFERASE 32 U/L (10-37); BLOOD UREA NITROGEN 17 MG/DL (7-18); BUN/CREATININE RATIO 13.6 (10.0-20.0); CHLORIDE 110 MMOL/L (99-107); CREATININE 1.25 MG/DL (0.40-0.90); GLUCOSE 86 MG/DL (70-104); POTASSIUM 4.6 MMOL/L (3.5-5.1); SODIUM 141 MMOL/L (135-145); TOTAL CARBON DIOXIDE 22.6 MMOL/L (24-32); TOTAL PROTEIN 7.1 G/DL (6.4-8.2); eCRCL 42 ML/MIN; eGFR 46 ML/MIN
[2023-10-16 18:06] LABS: PRO BRAIN NATRIURETIC PEPTIDE 4211 PG/ML (0-125)
[2023-10-16 18:45] LABS: ANISOCYTOSIS 2+; HYPOCHROMASIA 2+; NUCLEATED RED BLOOD CELLS 2 /100WBC (0-0); PLATELET ESTIMATE NORMAL; SCHISTOCYTES FEW; TOTAL CELLS COUNTED 100
[2023-10-16] MEDS ORDERED: furosemide 10 MG/1 ML 10ml inj IV ONE (18:45)
[2023-10-16 18:46] LABS: POLYCHROMASIA FEW; TARGET CELLS FEW
[2023-10-16] MEDS: albuterol 2.5 MG/3 ML nebule CONTNEB PRN (19:27)
[2023-10-16 19:28] VITALS: PULSE 83; RESP 28; O2SAT 100
[2023-10-16] MEDS: dexamethasone sod phosphate 10mg/ml inj IV STA (19:30)
[2023-10-16] MEDS: furosemide 40mg/4ml inj IV ONE (19:32)
[2023-10-16 19:46] LABS: BASOPHILS % (AUTO) 0.5 % (0-1); EOSINOPHILS # (AUTO) 0.1 X10'3 (0-0.9); EOSINOPHILS % (AUTO) 1.4 % (0-6); HEMATOCRIT 44.9 % (35.0-45.0); HEMOGLOBIN 14.2 g/dl (12.0-16.0); LYMPHOCYTES # (AUTO) 1.9 X10'3 (1.1-4.8); LYMPHOCYTES % (AUTO) 25.8 % (21-51); MEAN CORPUSCULAR HEMOGLOBIN 29.1 PG (27.0-31.0); MEAN CORPUSCULAR HGB CONC 31.7 g/dL (33.0-36.5); MEAN CORPUSCULAR VOLUME 91.9 FL (78-98); MEAN PLATELET VOLUME 9.2 FL (7.4-10.4); MONOCYTES # (AUTO) 0.6 X10'3 (0-0.9); MONOCYTES % (AUTO) 8.6 % (2-12); NEUTROPHILS # (AUTO) 4.7 X10'3 (1.8-7.7); NEUTROPHILS % (AUTO) 63.7 % (42-75); PLATELET COUNT 311 X10'3 (140-440); RED BLOOD COUNT 4.88 X10'6 (4.20-5.60); RED CELL DISTRIBUTION WIDTH 19.9 % (11.5-14.5); WHITE BLOOD COUNT 7.3 X10'3 (4.5-11.0)
[2023-10-16] MEDS ORDERED: acetaminophen 325mg tablet PO PRN (20:20)
[2023-10-16] MEDS ORDERED: magnesium Cl slow-release 64mg tablet PO PRN (20:20)
[2023-10-16] MEDS ORDERED: potassium Cl 20 mEq SR tablet PO PRN ×2 (20:20)
[2023-10-16] MEDS ORDERED: potassium Cl 40MEQ/1/2NS 520ml 520 ML IV PRN (20:20)
[2023-10-16] MEDS ORDERED: magnesium hydroxide 30ml (MOM) UD suspension PO PRN (20:20)
[2023-10-16] MEDS ORDERED: mag hydrox/Alum hydrox/simeth 30ml oral suspension PO PRN (20:20)
[2023-10-16] MEDS ORDERED: furosemide 10 MG/1 ML 10ml inj IV SCH (20:20)
[2023-10-16] MEDS ORDERED: ondansetron/PF 4mg/2ml inj IV PRN (20:20)
[2023-10-16] MEDS ORDERED: magnesium 2GM in 50ml NS 50 ML IV PRN (20:20)
[2023-10-16] MEDS ORDERED: magnesium 4gm in 100ml NS 100 ML IV PRN (20:20)
[2023-10-16] MEDS ORDERED: furosemide 40mg/4ml inj IV SCH (20:36)
[2023-10-16 21:12] LABS: HEMOGLOBIN A1C 6.6 % (4.5-6.2)
[2023-10-16 21:21] VITALS: PULSE 94; RESP 18; O2SAT 100
[2023-10-16 21:53] LABS: MAGNESIUM 1.7 MG/DL (1.5-2.4); URIC ACID 4.9 MG/DL (2.5-6.2)
[2023-10-16 21:59] LABS: POTASSIUM 5.7 MMOL/L (3.5-5.1)
[2023-10-16 22:30] VITALS: BP 123/87; PULSE 89; RESP 17; TEMP 98.9; O2SAT 97
[2023-10-16 23:00] VITALS: RESP 16; O2SAT 97
[2023-10-16] MEDS ORDERED: DEXTROSE 15 GM of carb/4 tabs (each vial/BOTTLE has 4 tablets) PO PRN ×2 (23:20)
[2023-10-16] MEDS ORDERED: glucagon, human recombinant 1mg kit SUBCUT PRN (23:20)
[2023-10-16] MEDS ORDERED: insulin Lispro (HumaLOG) vial - multi-dose SQ SCH (23:20)
[2023-10-16] MEDS ORDERED: dextrose 50%-water 50ml dispensing syringe IV PRN ×2 (23:20)
[2023-10-16] MEDS: MESSAGE TO PHARMACY PO ONE (23:57)
[2023-10-16] MEDS: furosemide 40mg/4ml inj IV STA (23:57)
[2023-10-17] VITALS (9 sets, daily range): BP systolic 114–146; BP diastolic 72–88; PULSE 77–100; RESP 14–25; TEMP 96.9–98.4; O2SAT 92–98
[2023-10-17 07:49] LABS: BASOPHILS % (AUTO) 0.2 % (0-1); EOSINOPHILS % (AUTO) 0 % (0-6); HEMOGLOBIN 13.3 g/dl (12.0-16.0); LYMPHOCYTES # (AUTO) 0.7 X10'3 (1.1-4.8); MEAN CORPUSCULAR VOLUME 89.8 FL (78-98); MONOCYTES # (AUTO) 0.1 X10'3 (0-0.9); WHITE BLOOD COUNT 4.7 X10'3 (4.5-11.0)
[2023-10-17 07:52] LABS: HEMATOCRIT 41.5 % (35.0-45.0); LYMPHOCYTES % (AUTO) 15.6 % (21-51); MEAN CORPUSCULAR HEMOGLOBIN 28.8 PG (27.0-31.0); MEAN CORPUSCULAR HGB CONC 32.1 g/dL (33.0-36.5); MEAN PLATELET VOLUME 9.5 FL (7.4-10.4); MONOCYTES % (AUTO) 2.4 % (2-12); NEUTROPHILS # (AUTO) 3.8 X10'3 (1.8-7.7); NEUTROPHILS % (AUTO) 81.8 % (42-75); PLATELET COUNT 273 X10'3 (140-440); RED BLOOD COUNT 4.62 X10'6 (4.20-5.60); RED CELL DISTRIBUTION WIDTH 19.6 % (11.5-14.5)
[2023-10-17] MEDS: K and/or MAG REPLACEMENT MC SCH (08:00)
[2023-10-17 08:03] LABS: ALANINE AMINOTRANSFERASE 30 U/L (12-78); ALBUMIN 2.9 G/DL (3.4-5.0); ALBUMIN/GLOBULIN RATIO 0.8 (1.1-1.5); ALKALINE PHOSPHATASE 155 IU/L (46-116); ANION GAP 10 (8-16); ASPARTATE AMINO TRANSFERASE 35 U/L (10-37); BILIRUBIN,TOTAL 1.1 MG/DL (0.1-1.0); BLOOD UREA NITROGEN 20 MG/DL (7-18); BUN/CREATININE RATIO 16.5 (10.0-20.0); CALCIUM 8.8 MG/DL (8.5-10.1); CHLORIDE 110 MMOL/L (99-107); CREATININE 1.21 MG/DL (0.40-0.90); GLUCOSE 140 MG/DL (70-104); POTASSIUM 4.9 MMOL/L (3.5-5.1); SODIUM 141 MMOL/L (135-145); TOTAL CARBON DIOXIDE 21.2 MMOL/L (24-32); TOTAL PROTEIN 6.6 G/DL (6.4-8.2); eCRCL 43 ML/MIN; eGFR 47 ML/MIN
[2023-10-17 08:12] LABS: CHOL/HDL RATIO 3.6 (0.00-4.99); CHOLESTEROL 109 MG/DL (0-200); FREE T4 (FREE THYROXINE) 1.05 NG/DL (0.73-1.40); HDL CHOLESTEROL 30 MG/DL (35-60); LDL CHOLESTEROL 73 MG/DL (50-100); MAGNESIUM 1.6 MG/DL (1.5-2.4); PHOSPHORUS 3.2 MG/DL (2.3-4.5); THYROID STIMULATING HORMONE 3.16 ulU/ml (0.34-4.50); TRIGLYCERIDES 65 MG/DL (20-135)
[2023-10-17 08:20] LABS: APTT 25 SECONDS (22-32); INR 1.2 INR; PROTHROMBIN TIME 12.6 SECONDS (9.0-12.0)
[2023-10-17] MEDS: EMPAGLIFLOZIN 10 MG TABLET PO SCH (08:38)
[2023-10-17] MEDS: metoprolol succinate 25mg (24-HOUR) SR. Tablet PO SCH (08:39)
[2023-10-17] MEDS: docusate sod 100mg capsule PO SCH (08:39)
[2023-10-17] MEDS: heparin, porcine 5000 units/ml vial SQ SCH (08:40)
[2023-10-17] MEDS: lisinopril 5mg tablet PO SCH (08:40)
[2023-10-17 08:44] LABS: ANISOCYTOSIS 2+; HYPOCHROMASIA 1+; NUCLEATED RED BLOOD CELLS 3 /100WBC (0-0); PLATELET ESTIMATE NORMAL; POLYCHROMASIA FEW; TARGET CELLS FEW; TOTAL CELLS COUNTED 100
[2023-10-17 08:45] LABS: ELLIPTOCYTES FEW; TEAR DROP CELLS FEW
[2023-10-17] MEDS: furosemide 40mg/4ml inj IV SCH (10:35)
[2023-10-17] MEDS ORDERED: furosemide 20 MG/2 ML vial IV SCH (18:00)
[2023-10-17] MEDS: bumetanide 0.25mg/ml 4ml vial IV SCH (19:51)
[2023-10-17] MEDS: insulin glargine (Lantus) pen - multi-dose SQ SCH (21:00)
[2023-10-18 02:00] VITALS: BP 126/87; PULSE 85; RESP 18; TEMP 97.9; O2SAT 94
[2023-10-18 06:10] LABS: BASOPHILS # (AUTO) 0.1 X10'3 (0-0.2); EOSINOPHILS % (AUTO) 0.1 % (0-6); MEAN CORPUSCULAR VOLUME 89.7 FL (78-98); MONOCYTES # (AUTO) 0.6 X10'3 (0-0.9)
[2023-10-18 06:11] LABS: BASOPHILS % (AUTO) 0.9 % (0-1); HEMATOCRIT 39.7 % (35.0-45.0); HEMOGLOBIN 12.8 g/dl (12.0-16.0); LYMPHOCYTES # (AUTO) 2.6 X10'3 (1.1-4.8); LYMPHOCYTES % (AUTO) 24.9 % (21-51); MEAN CORPUSCULAR HEMOGLOBIN 28.9 PG (27.0-31.0); MEAN CORPUSCULAR HGB CONC 32.2 g/dL (33.0-36.5); MEAN PLATELET VOLUME 9.4 FL (7.4-10.4); MONOCYTES % (AUTO) 5.7 % (2-12); NEUTROPHILS % (AUTO) 68.4 % (42-75); PLATELET COUNT 288 X10'3 (140-440); RED BLOOD COUNT 4.42 X10'6 (4.20-5.60); RED CELL DISTRIBUTION WIDTH 19.1 % (11.5-14.5); WHITE BLOOD COUNT 10.2 X10'3 (4.5-11.0)
[2023-10-18 06:17] LABS: APTT 25 SECONDS (22-32); INR 1.2 INR; PROTHROMBIN TIME 12.4 SECONDS (9.0-12.0)
[2023-10-18 06:19] LABS: ALANINE AMINOTRANSFERASE 25 U/L (12-78); ALBUMIN/GLOBULIN RATIO 0.9 (1.1-1.5); ALKALINE PHOSPHATASE 137 IU/L (46-116); ANION GAP 8 (8-16); ASPARTATE AMINO TRANSFERASE 31 U/L (10-37); BILIRUBIN,TOTAL 1.2 MG/DL (0.1-1.0); BLOOD UREA NITROGEN 28 MG/DL (7-18); BUN/CREATININE RATIO 19.3 (10.0-20.0); CALCIUM 8.7 MG/DL (8.5-10.1); CHLORIDE 106 MMOL/L (99-107); CREATININE 1.45 MG/DL (0.40-0.90); GLUCOSE 94 MG/DL (70-104); MAGNESIUM 1.6 MG/DL (1.5-2.4); PHOSPHORUS 3.9 MG/DL (2.3-4.5); POTASSIUM 4.4 MMOL/L (3.5-5.1); SODIUM 138 MMOL/L (135-145); TOTAL CARBON DIOXIDE 24.3 MMOL/L (24-32); TOTAL PROTEIN 6.4 G/DL (6.4-8.2); eCRCL 36 ML/MIN; eGFR 39 ML/MIN
[2023-10-18 06:30] VITALS: BP 116/86; PULSE 85; PULSE 86; RESP 20; TEMP 97.5; O2SAT 98
[2023-10-18 08:00] VITALS: RESP 20; O2SAT 98
[2023-10-18 11:00] VITALS: BP 136/90; RESP 20; TEMP 97.6; O2SAT 98
[2023-10-18 15:00] VITALS: BP 117/80; PULSE 68; RESP 19; TEMP 97.7; O2SAT 97
[2023-10-18] MEDS ORDERED: bumetanide 1mg tablet PO SCH (20:00)
== END 2023-10-18 16:43 | disposition left against medical advice (07) | DRG 194 ==
LOC: ER 14:52 → ED HOLD 20:30 → UNDOADMIN 20:30 → PCU 3S 22:30 → ED HOLD 22:30 → UNDOADMIN 10-17 00:56 → ED HOLD 10-17 00:56 → PCU 3S 10-17 00:56 → ED HOLD 10-17 00:57 → PCU 3S 10-17 00:57
PROVIDERS: ADMIT Internal Medicine Critical Care Medicine; ATTEND Internal Medicine
DX: I11.0 Hypertensive heart disease with heart failure (principal); K56.609 Unspecified intestinal obstruction, unspecified as to partial versus complete obstruction; I27.20 Pulmonary hypertension, unspecified; N17.9 Acute kidney failure, unspecified; I82.503 Chronic embolism and thrombosis of unspecified deep veins of lower extremity, bilateral; Z99.81 Dependence on supplemental oxygen; E03.9 Hypothyroidism, unspecified; F17.210 Nicotine dependence, cigarettes, uncomplicated; R55 Syncope and collapse; I50.43 Acute on chronic combined systolic (congestive) and diastolic (congestive) heart failure; E04.1 Nontoxic single thyroid nodule; N28.1 Cyst of kidney, acquired; K74.60 Unspecified cirrhosis of liver; I50.813 Acute on chronic right heart failure; E87.5 Hyperkalemia; E78.00 Pure hypercholesterolemia, unspecified; I07.1 Rheumatic tricuspid insufficiency; M10.9 Gout, unspecified; Z88.8 Allergy status to other drugs, medicaments and biological substances; Z79.899 Other long term (current) drug therapy; Z90.49 Acquired absence of other specified parts of digestive tract; Z71.6 Tobacco abuse counseling
CPT/HCPCS: 36415; 71045; 74176; 80053; 80061; 82948; 83036; 83735; 83880; 84100; 84132; 84439; 84443; 84484; 84550; 85007; 85025; 85610; 85730; 87081; 92508; 92616; 93005; 93306; 94640; 96374; 96375; 97161; 97530; 99291; A6213; A6222; A6223; A6402; A6446; A6449; G0378; J1100; J1644; J1815; J1940; J3490

== ENCOUNTER 2023-11-01 12:29 | Inpatient (IN) | payer MEDICAID ==
[~2023-11-01] VITALS: Ht 154.9 cm; Wt 89.0 kg
[2023-11-01] VITALS (7 sets, daily range): BP systolic 83–91; BP diastolic 33–65; PULSE 80–96; RESP 19–33; O2SAT 92–96
[2023-11-01 13:15] LABS: ALANINE AMINOTRANSFERASE 37 U/L (12-78); ALBUMIN 3.6 G/DL (3.4-5.0); ALBUMIN/GLOBULIN RATIO 0.8 (1.1-1.5); ALKALINE PHOSPHATASE 159 IU/L (46-116); ANION GAP 18 (8-16); ASPARTATE AMINO TRANSFERASE 89 U/L (10-37); BILIRUBIN,TOTAL 2.9 MG/DL (0.1-1.0); BLOOD UREA NITROGEN 42 MG/DL (7-18); BUN/CREATININE RATIO 14.3 (10.0-20.0); CHLORIDE 102 MMOL/L (99-107); CREATININE 2.94 MG/DL (0.40-0.90); GLUCOSE 71 MG/DL (70-104); POTASSIUM 4.7 MMOL/L (3.5-5.1); SODIUM 136 MMOL/L (135-145); TOTAL CARBON DIOXIDE 15.9 MMOL/L (24-32); TOTAL PROTEIN 7.9 G/DL (6.4-8.2); eCRCL 18 ML/MIN; eGFR 17 ML/MIN
[2023-11-01 13:20] LABS: PRO BRAIN NATRIURETIC PEPTIDE 27658 PG/ML (0-125)
[2023-11-01 13:52] LABS: BASOPHILS % (AUTO) 0.1 % (0-1); EOSINOPHILS % (AUTO) 0.1 % (0-6); HEMATOCRIT 48.3 % (35.0-45.0); HEMOGLOBIN 15.3 g/dl (12.0-16.0); LYMPHOCYTES # (AUTO) 1.1 X10'3 (1.1-4.8)
[2023-11-01 13:53] LABS: LYMPHOCYTES % (AUTO) 3.8 % (21-51); MEAN CORPUSCULAR HEMOGLOBIN 28.7 PG (27.0-31.0); MEAN CORPUSCULAR HGB CONC 31.7 g/dL (33.0-36.5); MEAN CORPUSCULAR VOLUME 90.5 FL (78-98); MEAN PLATELET VOLUME 9.7 FL (7.4-10.4); MONOCYTES # (AUTO) 1.2 X10'3 (0-0.9); MONOCYTES % (AUTO) 4.3 % (2-12); NEUTROPHILS # (AUTO) 25.6 X10'3 (1.8-7.7); NEUTROPHILS % (AUTO) 91.7 % (42-75); PLATELET COUNT 286 X10'3 (140-440); RED BLOOD COUNT 5.33 X10'6 (4.20-5.60); RED CELL DISTRIBUTION WIDTH 19.8 % (11.5-14.5)
[2023-11-01 14:01] LABS: WHITE BLOOD COUNT 27.9 X10'3 (4.5-11.0)
[2023-11-01] MEDS: CefTRIAXone/D5W-Rocephin 1gm 50 ML IV ONE (14:50)
[2023-11-01 14:57] LABS: ANISOCYTOSIS 2+; NUCLEATED RED BLOOD CELLS 3 /100WBC (0-0); PLATELET ESTIMATE NORMAL; TOTAL CELLS COUNTED 100
[2023-11-01 14:58] LABS: C-REACTIVE PROTEIN 12.86 MG/DL (0.0-0.5); MAGNESIUM 1.7 MG/DL (1.5-2.4); PHOSPHORUS 5.3 MG/DL (2.3-4.5)
[2023-11-01 15:04] LABS: HYPOCHROMASIA 2+
[2023-11-01 15:06] LABS: TARGET CELLS 1+
[2023-11-01 15:17] LABS: BURR CELLS FEW; POLYCHROMASIA FEW
[2023-11-01] MEDS: LORazepam 2 mg/ml vial ONE (16:06)
[2023-11-01] MEDS: HYDROmorphone/PF 0.2 MG/ML SYRINGE IV ONE (16:07)
[2023-11-01] MEDS: vancomycin/NS 1 GM ADD-VANTAGE 250 ML IV ONE (16:21)
[2023-11-01] MEDS: normal saline 1000ML IV soln IVB ONE (16:21)
[2023-11-01] MEDS: HYDROmorphone 1 mg/ml syringe IV ONE (16:22)
[2023-11-01] MEDS: LORazepam 2 mg/ml vial IV ONE (16:22)
[2023-11-01] MEDS: normal saline 1000ML IV soln IV ONE (16:25)
[2023-11-01 16:31] LABS: THYROID STIMULATING HORMONE 10.06 ulU/ml (0.34-4.50)
[2023-11-01] MEDS ORDERED: magnesium hydroxide 30ml (MOM) UD suspension PO PRN (17:10)
[2023-11-01] MEDS: ringers solution, lactated 500ml IV solution IV ONE (17:10)
[2023-11-01] MEDS ORDERED: ondansetron/PF 4mg/2ml inj IV PRN (17:10)
[2023-11-01] MEDS ORDERED: morphine 4 MG/ML inj SYRINge IV PRN (17:10)
[2023-11-01] MEDS: ringers solution, lacted 1,000 ML IV ONE ×3 (17:49→18:56)
[2023-11-01 18:37] LABS: FREE T4 (FREE THYROXINE) 0.92 NG/DL (0.73-1.40)
[2023-11-01] MEDS: LidoCAINE 2% Topical Jelly 11mL syringe (UROJET) TOP ONE (18:57)
[2023-11-01 19:52] LABS: BILIRUBIN,URINE MODERATE (Neg); CLARITY,URINE SLIGHTLY CLOUDY (Clear); COLOR,URINE YELLOW (Yellow); GLUCOSE, URINE NEGATIVE (Neg); KETONES,URINE TRACE mg/dl (Neg); LEUKOCYTE ESTERASE ,URINE NEGATIVE (Neg); NITRITES, URINE NEGATIVE (Neg); OCCULT BLOOD,URINE TRACE-INTACT (Neg); PH,URINE 5.5 (4.8-8.0); PROTEIN,URINE 30 mg/dl (Neg)
[2023-11-01 20:17] LABS: UA COLLECTION TYPE FOLEY CATH
[2023-11-01 20:18] LABS: SQUAMOUS EPITHELIAL CELL,UR MANY /LPF (FEW)
[2023-11-01 20:21] LABS: BACTERIA,URINE 2+ /HPF (Neg); WBC,URINE 0-4 /HPF (0-4)
[2023-11-01 20:44] LABS: URINE AMPHETAMINE SCREEN POSITIVE (Neg); URINE BARBITUATE SCREEN NEGATIVE (Neg); URINE BENZODIAZEPINES SCREEN NEGATIVE (Neg); URINE CANNABINOID SCREEN NEGATIVE (Neg); URINE COCAINE SCREEN NEGATIVE (Neg); URINE METHADONE SCREEN NEGATIVE (Neg); URINE OPIATE SCREEN NEGATIVE (Neg); URINE PHENCYCLIDINE SCREEN NEGATIVE (Neg)
[2023-11-01] MEDS: VANCOMYCIN 750MG IV in NS 250 ML IV ONE (21:14)
[2023-11-01] MEDS: ringers solution, lacted 1,000 ML IV SCH (21:14)
[2023-11-01] MEDS: NORepinephrine 8mg/ 250ml NS 250 ML IV ONE (22:38)
[2023-11-01 23:00] LABS: ABG BASE EXCESS -10.9 mmol/L (-2.0-2.0); ABG HCO3 15.1 mmol/L (22.0-26.0); ABG OXYGEN SATURATION 89.5 % (94-97); ABG PCO2 (T) 34.5 mmHg (32.0-45.0); ABG PO2 (T) 53.6 mmHg (75.0-100.0); FCOHb 0.7 % (0.0-3.9); FHHb 10.4 % (0.0-5.0); FO2Hb 88.9 % (94-97); MODE MASK - BIPAP; RESPIRATORY RATE 16 b/min
[2023-11-01] MEDS: sodium bicarbonate (8.4%) 1 mEq/ml syringe IV ONE (23:07)
[2023-11-01] MEDS: sodium bicarbonate (8.4%) 1 mEq/ml syringe ONE (23:08)
[2023-11-01 23:26] LABS: EOSINOPHILS % (AUTO) 0 % (0-6); HEMOGLOBIN 13.3 g/dl (12.0-16.0); LYMPHOCYTES # (AUTO) 1.2 X10'3 (1.1-4.8); NEUTROPHILS # (AUTO) 18.6 X10'3 (1.8-7.7)
[2023-11-01 23:28] LABS: BASOPHILS # (AUTO) 0.1 X10'3 (0-0.2); BASOPHILS % (AUTO) 0.3 % (0-1); HEMATOCRIT 42.2 % (35.0-45.0); LYMPHOCYTES % (AUTO) 5.8 % (21-51); MEAN CORPUSCULAR HEMOGLOBIN 28.5 PG (27.0-31.0); MEAN CORPUSCULAR HGB CONC 31.4 g/dL (33.0-36.5); MEAN CORPUSCULAR VOLUME 90.7 FL (78-98); MEAN PLATELET VOLUME 9.4 FL (7.4-10.4); MONOCYTES # (AUTO) 1.2 X10'3 (0-0.9); MONOCYTES % (AUTO) 5.9 % (2-12); PLATELET COUNT 253 X10'3 (140-440); RED BLOOD COUNT 4.65 X10'6 (4.20-5.60); RED CELL DISTRIBUTION WIDTH 19.7 % (11.5-14.5); WHITE BLOOD COUNT 21.1 X10'3 (4.5-11.0)
[2023-11-01 23:31] LABS: APTT 31 SECONDS (22-32); INR 1.5 INR; PROTHROMBIN TIME 16.2 SECONDS (9.0-12.0)
[2023-11-01 23:32] LABS: ALANINE AMINOTRANSFERASE 32 U/L (12-78); ALBUMIN 2.6 G/DL (3.4-5.0); ALBUMIN/GLOBULIN RATIO 0.7 (1.1-1.5); ALKALINE PHOSPHATASE 113 IU/L (46-116); ANION GAP 9 (8-16); ASPARTATE AMINO TRANSFERASE 80 U/L (10-37); BILIRUBIN,TOTAL 2.1 MG/DL (0.1-1.0); BLOOD UREA NITROGEN 46 MG/DL (7-18); BUN/CREATININE RATIO 16.8 (10.0-20.0); CALCIUM 8.2 MG/DL (8.5-10.1); CHLORIDE 107 MMOL/L (99-107); CREATININE 2.73 MG/DL (0.40-0.90); GLUCOSE 85 MG/DL (70-104); MAGNESIUM 1.4 MG/DL (1.5-2.4); PHOSPHORUS 5.7 MG/DL (2.3-4.5); POTASSIUM 5.4 MMOL/L (3.5-5.1); SODIUM 137 MMOL/L (135-145); TOTAL CARBON DIOXIDE 20.9 MMOL/L (24-32); TOTAL PROTEIN 6.1 G/DL (6.4-8.2); eCRCL 19 ML/MIN; eGFR 19 ML/MIN
[2023-11-01 23:46] LABS: OXYGEN SATURATION (MIXED VEN) 78.3 % (60-80); PO2 MIXED VENOUS (TEMP COR) 46.7 mmHg (35-46)
[2023-11-02] VITALS (34 sets, daily range): BP systolic 85–138; BP diastolic 51–100; PULSE 81–96; RESP 10–29; O2SAT 94–100
[2023-11-02] MEDS: heparin, porcine 5000 units/ml vial SQ SCH (00:23)
[2023-11-02 03:06] LABS: ALANINE AMINOTRANSFERASE 29 U/L (12-78); ALBUMIN 2.4 G/DL (3.4-5.0); ALBUMIN/GLOBULIN RATIO 0.7 (1.1-1.5); ALKALINE PHOSPHATASE 103 IU/L (46-116); ANION GAP 12 (8-16); ASPARTATE AMINO TRANSFERASE 69 U/L (10-37); BLOOD UREA NITROGEN 47 MG/DL (7-18); CALCIUM 8.1 MG/DL (8.5-10.1); CHLORIDE 107 MMOL/L (99-107); CREATININE 2.61 MG/DL (0.40-0.90); GLUCOSE 84 MG/DL (70-104); POTASSIUM 4.8 MMOL/L (3.5-5.1); SODIUM 138 MMOL/L (135-145); TOTAL CARBON DIOXIDE 18.7 MMOL/L (24-32); TOTAL PROTEIN 5.7 G/DL (6.4-8.2); eCRCL 20 ML/MIN; eGFR 20 ML/MIN
[2023-11-02 03:07] LABS: BASOPHILS # (AUTO) 0.1 X10'3 (0-0.2); BASOPHILS % (AUTO) 0.3 % (0-1); EOSINOPHILS % (AUTO) 0 % (0-6); LYMPHOCYTES # (AUTO) 0.8 X10'3 (1.1-4.8); MEAN CORPUSCULAR HGB CONC 31.8 g/dL (33.0-36.5)
[2023-11-02 03:09] LABS: HEMATOCRIT 39.3 % (35.0-45.0); HEMOGLOBIN 12.5 g/dl (12.0-16.0); LYMPHOCYTES % (AUTO) 4.3 % (21-51); MEAN CORPUSCULAR HEMOGLOBIN 28.5 PG (27.0-31.0); MEAN CORPUSCULAR VOLUME 89.5 FL (78-98); MONOCYTES # (AUTO) 0.8 X10'3 (0-0.9); MONOCYTES % (AUTO) 4.6 % (2-12); NEUTROPHILS # (AUTO) 16.7 X10'3 (1.8-7.7); NEUTROPHILS % (AUTO) 90.8 % (42-75); PLATELET COUNT 253 X10'3 (140-440); RED BLOOD COUNT 4.39 X10'6 (4.20-5.60); RED CELL DISTRIBUTION WIDTH 19.8 % (11.5-14.5); WHITE BLOOD COUNT 18.4 X10'3 (4.5-11.0)
[2023-11-02 04:15] LABS: NUCLEATED RED BLOOD CELLS 1 /100WBC (0-0); TOTAL CELLS COUNTED 100
[2023-11-02 04:16] LABS: ANISOCYTOSIS 2+; HYPOCHROMASIA 1+; PLATELET ESTIMATE NORMAL
[2023-11-02 04:18] LABS: BURR CELLS FEW
[2023-11-02 04:19] LABS: TARGET CELLS FEW
[2023-11-02] MEDS: CefTRIAXone/D5W-Rocephin 1gm 50 ML IV SCH (08:34)
[2023-11-02 10:26] LABS: ABG BASE EXCESS -10.5 mmol/L (-2.0-2.0); ABG HCO3 14.1 mmol/L (22.0-26.0); ABG OXYGEN SATURATION 96.7 % (94-97); ABG PCO2 (T) 27.9 mmHg (32.0-45.0); ABG PH (T) 7.321 (7.350-7.450); ABG PO2 (T) 91.6 mmHg (75.0-100.0); ALLEN'S TEST Modified; FCOHb 0.6 % (0.0-3.9); FHHb 3.3 % (0.0-5.0); FLOW 4 L/min; FMetHb 0.3 % (0.0-1.5); FO2Hb 95.8 % (94-97); MODE NASAL CANNULA; PATIENT TEMPERATURE 36.9; TOTAL HEMOGLOBIN 13.2 G/dl (12.0-16.0)
[2023-11-02] MEDS ORDERED: SPIR25TA5 PO (10:41)
[2023-11-02] MEDS ORDERED: NORepinephrine 8mg/ 250ml NS 250 ML IV PRN (11:15)
[2023-11-02] MEDS: magnesium 2GM in 50ml NS 50 ML IV ONE (11:22)
[2023-11-02] MEDS: sodium bicarbonate 1meq/ml inj 150 ML in dextrose 5%-water 1,000 ML IV SCH (11:50)
[2023-11-02] MEDS ORDERED: heparin 10,000 units/1 ML INJ IV ONE (18:15)
[2023-11-02] MEDS: heparin 10,000 units/1 ML INJ IV ONE (18:51)
[2023-11-02] MEDS: heparin 25,000 UNIT/250ml bag 250 ML IV PRN (18:53)
[2023-11-02] MEDS: VANCOMYCIN 750MG IV in NS 250 ML IV SCH (19:49)
[2023-11-02] MEDS: acetaminophen 325mg tablet PO PRN (23:25)
[2023-11-03] VITALS (30 sets, daily range): BP systolic 79–116; BP diastolic 28–77; PULSE 82–97; RESP 13–27; O2SAT 92–99
[2023-11-03 01:39] LABS: EOSINOPHILS # (AUTO) 0.1 X10'3 (0-0.9); HEMOGLOBIN 11.9 g/dl (12.0-16.0); MEAN CORPUSCULAR HEMOGLOBIN 29.1 PG (27.0-31.0); MEAN CORPUSCULAR HGB CONC 32.9 g/dL (33.0-36.5); MONOCYTES # (AUTO) 0.3 X10'3 (0-0.9)
[2023-11-03 01:40] LABS: BASOPHILS % (AUTO) 0.2 % (0-1); EOSINOPHILS % (AUTO) 0.6 % (0-6); HEMATOCRIT 36.3 % (35.0-45.0); LYMPHOCYTES # (AUTO) 0.8 X10'3 (1.1-4.8); LYMPHOCYTES % (AUTO) 6.3 % (21-51); MEAN CORPUSCULAR VOLUME 88.5 FL (78-98); MEAN PLATELET VOLUME 9.7 FL (7.4-10.4); MONOCYTES % (AUTO) 2.4 % (2-12); NEUTROPHILS % (AUTO) 90.5 % (42-75); PLATELET COUNT 204 X10'3 (140-440); RED CELL DISTRIBUTION WIDTH 19.5 % (11.5-14.5); WHITE BLOOD COUNT 13.3 X10'3 (4.5-11.0)
[2023-11-03 02:08] LABS: CHLORIDE,URINE RANDOM < 50 MEQ/L; SODIUM,URINE RANDOM < 15 MEQ/L
[2023-11-03 02:14] LABS: ALANINE AMINOTRANSFERASE 25 U/L (12-78); ALBUMIN/GLOBULIN RATIO 0.6 (1.1-1.5); ALKALINE PHOSPHATASE 104 IU/L (46-116); ANION GAP 9 (8-16); ASPARTATE AMINO TRANSFERASE 38 U/L (10-37); BILIRUBIN,TOTAL 1.2 MG/DL (0.1-1.0); BLOOD UREA NITROGEN 49 MG/DL (7-18); BUN/CREATININE RATIO 21.8 (10.0-20.0); CALCIUM 7.6 MG/DL (8.5-10.1); CHLORIDE 104 MMOL/L (99-107); CREATININE 2.25 MG/DL (0.40-0.90); GLUCOSE 131 MG/DL (70-104); LACTATE DEHYDROGENASE 265 U/L (81-234); PHOSPHORUS 3.2 MG/DL (2.3-4.5); POTASSIUM 4.2 MMOL/L (3.5-5.1); SODIUM 135 MMOL/L (135-145); TOTAL CARBON DIOXIDE 21.7 MMOL/L (24-32); TOTAL PROTEIN 5.5 G/DL (6.4-8.2); eCRCL 23 ML/MIN; eGFR 23 ML/MIN
[2023-11-03 02:35] LABS: RHEUM FACTOR QUAL REFLEX TITER NEGATIVE (Neg)
[2023-11-03 03:23] LABS: HIV ANTIBODY 1&2 RAPID NON-REACTIVE (Neg)
[2023-11-03 04:01] LABS: ANISOCYTOSIS 2+; BURR CELLS FEW; ELLIPTOCYTES FEW; LARGE PLATELETS FEW; NUCLEATED RED BLOOD CELLS 4 /100WBC (0-0); PLATELET ESTIMATE NORMAL; POLYCHROMASIA FEW; TARGET CELLS FEW; TOTAL CELLS COUNTED 100; TOXIC VACUOLATION 1+
[2023-11-03] MEDS: levoTHYROXINE 100mcg tablet PO SCH (08:29)
[2023-11-03] MEDS: acetaminophen 325mg tablet PO PRN (22:53)
[2023-11-04] VITALS (28 sets, daily range): BP systolic 94–127; BP diastolic 55–86; PULSE 86–96; RESP 13–29; O2SAT 87–99
[2023-11-04 03:28] LABS: EOSINOPHILS # (AUTO) 0.1 X10'3 (0-0.9); HEMATOCRIT 34.9 % (35.0-45.0); HEMOGLOBIN 11.3 g/dl (12.0-16.0); NEUTROPHILS # (AUTO) 9.9 X10'3 (1.8-7.7); RED CELL DISTRIBUTION WIDTH 19.4 % (11.5-14.5); WHITE BLOOD COUNT 11.6 X10'3 (4.5-11.0)
[2023-11-04 03:30] LABS: BASOPHILS % (AUTO) 0.2 % (0-1); EOSINOPHILS % (AUTO) 0.9 % (0-6); LYMPHOCYTES % (AUTO) 8.7 % (21-51); MEAN CORPUSCULAR HEMOGLOBIN 28.5 PG (27.0-31.0); MEAN CORPUSCULAR HGB CONC 32.2 g/dL (33.0-36.5); MEAN CORPUSCULAR VOLUME 88.4 FL (78-98); MEAN PLATELET VOLUME 9.9 FL (7.4-10.4); MONOCYTES # (AUTO) 0.6 X10'3 (0-0.9); NEUTROPHILS % (AUTO) 85.2 % (42-75); PLATELET COUNT 196 X10'3 (140-440); RED BLOOD COUNT 3.95 X10'6 (4.20-5.60)
[2023-11-04 03:32] LABS: ALANINE AMINOTRANSFERASE 24 U/L (12-78); ALBUMIN 1.9 G/DL (3.4-5.0); ALBUMIN/GLOBULIN RATIO 0.5 (1.1-1.5); ALKALINE PHOSPHATASE 129 IU/L (46-116); ANION GAP 8 (8-16); ASPARTATE AMINO TRANSFERASE 40 U/L (10-37); BILIRUBIN,TOTAL 1.2 MG/DL (0.1-1.0); BLOOD UREA NITROGEN 39 MG/DL (7-18); BUN/CREATININE RATIO 24.2 (10.0-20.0); CALCIUM 8.1 MG/DL (8.5-10.1); CHLORIDE 104 MMOL/L (99-107); CREATININE 1.61 MG/DL (0.40-0.90); GLUCOSE 117 MG/DL (70-104); PHOSPHORUS 2.2 MG/DL (2.3-4.5); POTASSIUM 3.7 MMOL/L (3.5-5.1); SODIUM 139 MMOL/L (135-145); TOTAL CARBON DIOXIDE 26.6 MMOL/L (24-32); TOTAL PROTEIN 5.6 G/DL (6.4-8.2); eCRCL 32 ML/MIN; eGFR 34 ML/MIN
[2023-11-04 06:03] LABS: NUCLEATED RED BLOOD CELLS 6 /100WBC (0-0); PLATELET ESTIMATE NORMAL; TOTAL CELLS COUNTED 100
[2023-11-04 06:04] LABS: ANISOCYTOSIS 2+; ELLIPTOCYTES FEW; TARGET CELLS FEW
[2023-11-04 08:11] LABS: APTT 58 SECONDS (22-32)
[2023-11-04 11:14] LABS: ANTINUCLEAR ANTIBODIES Negative (Negative); ANTISTREPTOLYSIN O AB 210.2 IU/mL (0.0-200.0); COMPLEMENT C3, SERUM 97 mg/dL (82-167); COMPLEMENT C4, SERUM 18 mg/dL (12-38)
[2023-11-04] MEDS: midodrine tablet 2.5 MG TABLET PO SCH (11:41)
[2023-11-04 17:00] LABS: APTT 48 SECONDS (22-32)
[2023-11-04 17:11] LABS: HBSAG SCREEN Negative (Negative)
[2023-11-04] MEDS: VANCOMYCIN LEVEL IV ONE (18:56)
[2023-11-04 23:10] LABS: APTT 52 SECONDS (22-32)
[2023-11-04] MEDS: albumin (human) 25% 100 ML IV solution IV SCH (23:18)
[2023-11-05] VITALS (24 sets, daily range): BP systolic 100–136; BP diastolic 72–100; PULSE 79–95; RESP 12–31; O2SAT 91–96
[2023-11-05 03:50] LABS: BASOPHILS % (AUTO) 0.2 % (0-1); EOSINOPHILS # (AUTO) 0.2 X10'3 (0-0.9); HEMATOCRIT 32.9 % (35.0-45.0); LYMPHOCYTES # (AUTO) 1.1 X10'3 (1.1-4.8); LYMPHOCYTES % (AUTO) 10.2 % (21-51); MONOCYTES # (AUTO) 0.8 X10'3 (0-0.9)
[2023-11-05 03:53] LABS: HEMOGLOBIN 10.7 g/dl (12.0-16.0); MEAN CORPUSCULAR HEMOGLOBIN 28.9 PG (27.0-31.0); MEAN CORPUSCULAR HGB CONC 32.5 g/dL (33.0-36.5); MEAN PLATELET VOLUME 9.7 FL (7.4-10.4); MONOCYTES % (AUTO) 7.6 % (2-12); NEUTROPHILS # (AUTO) 8.4 X10'3 (1.8-7.7); PLATELET COUNT 183 X10'3 (140-440); RED CELL DISTRIBUTION WIDTH 19.7 % (11.5-14.5); WHITE BLOOD COUNT 10.5 X10'3 (4.5-11.0)
[2023-11-05 04:27] LABS: ANISOCYTOSIS 2+; PLATELET ESTIMATE NORMAL
[2023-11-05 04:33] LABS: POIKILOCYTOSIS 1+
[2023-11-05 04:34] LABS: ELLIPTOCYTES 1+; POLYCHROMASIA FEW; TARGET CELLS FEW
[2023-11-05] MEDS: morphine 2 MG/ML inj. syringe IV PRN (05:51)
[2023-11-05 06:11] LABS: ALANINE AMINOTRANSFERASE 21 U/L (12-78); ALBUMIN 2.6 G/DL (3.4-5.0); ALBUMIN/GLOBULIN RATIO 0.7 (1.1-1.5); ALKALINE PHOSPHATASE 118 IU/L (46-116); ASPARTATE AMINO TRANSFERASE 32 U/L (10-37); BILIRUBIN,TOTAL 1.5 MG/DL (0.1-1.0); BLOOD UREA NITROGEN 36 MG/DL (7-18); BUN/CREATININE RATIO 27.3 (10.0-20.0); CALCIUM 8.6 MG/DL (8.5-10.1); CREATININE 1.32 MG/DL (0.40-0.90); GLUCOSE 104 MG/DL (70-104); PHOSPHORUS 2.1 MG/DL (2.3-4.5); TOTAL CARBON DIOXIDE 26.4 MMOL/L (24-32); TOTAL PROTEIN 6.1 G/DL (6.4-8.2); eCRCL 39 ML/MIN; eGFR 43 ML/MIN
[2023-11-05 06:21] LABS: ANION GAP 11 (8-16); CHLORIDE 105 MMOL/L (99-107); POTASSIUM 3.9 MMOL/L (3.5-5.1); SODIUM 142 MMOL/L (135-145)
[2023-11-05 07:33] LABS: MAGNESIUM 1.9 MG/DL (1.5-2.4)
[2023-11-05] MEDS: midodrine 5mg tablet PO ONE (08:41)
[2023-11-05] MEDS: vancomycin/NS 1 GM ADD-VANTAGE 250 ML IV SCH (09:24)
[2023-11-05] MEDS: Neutra Phos packet PO SCH (12:42)
[2023-11-05] MEDS: midodrine 5mg tablet PO SCH (12:42)
[2023-11-05] MEDS ORDERED: pneumococcal 23-VAL P-sac vacc 25 mcg/0.5ml vial IMVAC ONE (15:35)
[2023-11-05] MEDS: PERFLUTREN PROTEIN-A MICROSPHR (Optison) 0.22 MG/ML 3ML VIAL IV ONE (18:00)
[2023-11-06] VITALS (20 sets, daily range): BP systolic 112–147; BP diastolic 74–98; PULSE 83–100; RESP 12–36; TEMP 97.9–99; O2SAT 91–99
[2023-11-06 03:19] LABS: EOSINOPHILS # (AUTO) 0.3 X10'3 (0-0.9); LYMPHOCYTES # (AUTO) 1.7 X10'3 (1.1-4.8); MEAN PLATELET VOLUME 9.8 FL (7.4-10.4); RED CELL DISTRIBUTION WIDTH 19.9 % (11.5-14.5)
[2023-11-06 03:22] LABS: BASOPHILS % (AUTO) 0.4 % (0-1); EOSINOPHILS % (AUTO) 2.8 % (0-6); HEMATOCRIT 31.5 % (35.0-45.0); HEMOGLOBIN 10.3 g/dl (12.0-16.0); LYMPHOCYTES % (AUTO) 16.7 % (21-51); MEAN CORPUSCULAR HEMOGLOBIN 28.9 PG (27.0-31.0); MEAN CORPUSCULAR HGB CONC 32.5 g/dL (33.0-36.5); MONOCYTES % (AUTO) 9.8 % (2-12); NEUTROPHILS # (AUTO) 7.1 X10'3 (1.8-7.7); NEUTROPHILS % (AUTO) 70.3 % (42-75); PLATELET COUNT 188 X10'3 (140-440); RED BLOOD COUNT 3.54 X10'6 (4.20-5.60); WHITE BLOOD COUNT 10.1 X10'3 (4.5-11.0)
[2023-11-06 03:39] LABS: ALANINE AMINOTRANSFERASE 20 U/L (12-78); ALBUMIN 3.3 G/DL (3.4-5.0); ALBUMIN/GLOBULIN RATIO 1.1 (1.1-1.5); ALKALINE PHOSPHATASE 113 IU/L (46-116); ANION GAP 9 (8-16); ASPARTATE AMINO TRANSFERASE 27 U/L (10-37); BILIRUBIN,TOTAL 2.1 MG/DL (0.1-1.0); BLOOD UREA NITROGEN 34 MG/DL (7-18); BUN/CREATININE RATIO 25.4 (10.0-20.0); CALCIUM 9.2 MG/DL (8.5-10.1); CHLORIDE 103 MMOL/L (99-107); CREATININE 1.34 MG/DL (0.40-0.90); GLUCOSE 82 MG/DL (70-104); PHOSPHORUS 2.8 MG/DL (2.3-4.5); POTASSIUM 4.1 MMOL/L (3.5-5.1); SODIUM 138 MMOL/L (135-145); TOTAL PROTEIN 6.4 G/DL (6.4-8.2); eCRCL 38 ML/MIN; eGFR 42 ML/MIN
[2023-11-06 06:07] LABS: ANISOCYTOSIS 2+; NUCLEATED RED BLOOD CELLS 4 /100WBC (0-0); PLATELET ESTIMATE NORMAL; TOTAL CELLS COUNTED 100
[2023-11-06 06:11] LABS: ELLIPTOCYTES 1+; SCHISTOCYTES FEW; TARGET CELLS 1+
[2023-11-06 06:12] LABS: LARGE PLATELETS FEW
[2023-11-06] MEDS: pneumococcal 23-VAL P-sac vacc 25 mcg/0.5ml vial IMVAC ONE (08:05)
[2023-11-06] MEDS: heparin 10,000 units/1 ML INJ IV PRN (09:32)
[2023-11-06] MEDS ORDERED: iohexol 350 MG/ML 50ML vial IV ONE (10:18)
[2023-11-06] MEDS ORDERED: iohexol 350MG/ML 100ml bottle IV ONE (10:19)
[2023-11-06] MEDS: midodrine 5mg tablet PO SCH (15:41)
[2023-11-06] MEDS: heparin, porcine 5000 units/ml vial SQ SCH (15:41)
[2023-11-06] MEDS: VANCOMYCIN LEVEL IV ONE (20:39)
[2023-11-07] VITALS (8 sets, daily range): BP systolic 125–143; BP diastolic 86–102; PULSE 88–99; RESP 17–31; TEMP 97.6–98.5; O2SAT 94–99
[2023-11-07 02:26] LABS: EOSINOPHILS # (AUTO) 0.3 X10'3 (0-0.9)
[2023-11-07 02:28] LABS: BASOPHILS # (AUTO) 0.1 X10'3 (0-0.2); BASOPHILS % (AUTO) 0.9 % (0-1); EOSINOPHILS % (AUTO) 2.8 % (0-6); HEMATOCRIT 32.7 % (35.0-45.0); HEMOGLOBIN 10.7 g/dl (12.0-16.0); LYMPHOCYTES # (AUTO) 1.4 X10'3 (1.1-4.8); LYMPHOCYTES % (AUTO) 15.1 % (21-51); MEAN CORPUSCULAR HEMOGLOBIN 29.2 PG (27.0-31.0); MEAN CORPUSCULAR HGB CONC 32.9 g/dL (33.0-36.5); MEAN CORPUSCULAR VOLUME 88.9 FL (78-98); MEAN PLATELET VOLUME 9.7 FL (7.4-10.4); MONOCYTES % (AUTO) 11.1 % (2-12); NEUTROPHILS # (AUTO) 6.5 X10'3 (1.8-7.7); NEUTROPHILS % (AUTO) 70.1 % (42-75); PLATELET COUNT 221 X10'3 (140-440); RED BLOOD COUNT 3.68 X10'6 (4.20-5.60); RED CELL DISTRIBUTION WIDTH 20.1 % (11.5-14.5); WHITE BLOOD COUNT 9.2 X10'3 (4.5-11.0)
[2023-11-07 02:34] LABS: ALANINE AMINOTRANSFERASE 16 U/L (12-78); ALBUMIN 3.1 G/DL (3.4-5.0); ALBUMIN/GLOBULIN RATIO 0.9 (1.1-1.5); ALKALINE PHOSPHATASE 137 IU/L (46-116); ANION GAP 11 (8-16); ASPARTATE AMINO TRANSFERASE 24 U/L (10-37); BILIRUBIN,TOTAL 1.8 MG/DL (0.1-1.0); BLOOD UREA NITROGEN 31 MG/DL (7-18); BUN/CREATININE RATIO 22.5 (10.0-20.0); CALCIUM 8.8 MG/DL (8.5-10.1); CHLORIDE 100 MMOL/L (99-107); CREATININE 1.38 MG/DL (0.40-0.90); GLUCOSE 118 MG/DL (70-104); POTASSIUM 4.1 MMOL/L (3.5-5.1); SODIUM 135 MMOL/L (135-145); TOTAL CARBON DIOXIDE 24.2 MMOL/L (24-32); TOTAL PROTEIN 6.4 G/DL (6.4-8.2); eCRCL 37 ML/MIN; eGFR 41 ML/MIN
[2023-11-07 05:29] LABS: ANISOCYTOSIS 3+; NUCLEATED RED BLOOD CELLS 3 /100WBC (0-0); PLATELET ESTIMATE NORMAL; SCHISTOCYTES FEW; TOTAL CELLS COUNTED 100
[2023-11-07 05:30] LABS: ELLIPTOCYTES FEW; LARGE PLATELETS FEW; TARGET CELLS 1+
[2023-11-07] MEDS: vancomycin inj 500 MG in normal saline 100ml IV soln 100 ML IV SCH (09:46)
[2023-11-07] MEDS: normal saline 1000ml 1,000 ML IV SCH (13:01)
[2023-11-07] MEDS: cephalexin 500mg capsule PO SCH (14:05)
[2023-11-07 18:46] LABS: ATYPICAL PANCA <1:20 titer (Neg:<1:20); CYTOPLASMIC (C-ANCA) <1:20 titer (Neg:<1:20); PERINUCLEAR (P-ANCA) <1:20 titer (Neg:<1:20)
[2023-11-08 02:22] VITALS: BP 148/89; PULSE 86; RESP 20; TEMP 97.9; O2SAT 94
[2023-11-08 06:00] VITALS: BP 134/93; PULSE 94; RESP 20; TEMP 98.2; O2SAT 96
[2023-11-08 08:00] VITALS: RESP 20; O2SAT 96
[2023-11-08 08:58] LABS: EOSINOPHILS # (AUTO) 0.3 X10'3 (0-0.9); HEMOGLOBIN 10.8 g/dl (12.0-16.0); LYMPHOCYTES # (AUTO) 1.1 X10'3 (1.1-4.8); MEAN CORPUSCULAR HEMOGLOBIN 28.4 PG (27.0-31.0)
[2023-11-08 09:00] LABS: BASOPHILS % (AUTO) 0.4 % (0-1); EOSINOPHILS % (AUTO) 2.4 % (0-6); HEMATOCRIT 33.8 % (35.0-45.0); LYMPHOCYTES % (AUTO) 11.2 % (21-51); MEAN CORPUSCULAR HGB CONC 31.9 g/dL (33.0-36.5); MEAN CORPUSCULAR VOLUME 89.3 FL (78-98); MEAN PLATELET VOLUME 9.9 FL (7.4-10.4); MONOCYTES # (AUTO) 0.9 X10'3 (0-0.9); NEUTROPHILS # (AUTO) 7.9 X10'3 (1.8-7.7); PLATELET COUNT 245 X10'3 (140-440); RED BLOOD COUNT 3.79 X10'6 (4.20-5.60); WHITE BLOOD COUNT 10.3 X10'3 (4.5-11.0)
[2023-11-08 09:35] LABS: ALANINE AMINOTRANSFERASE 17 U/L (12-78); ALBUMIN 2.8 G/DL (3.4-5.0); ALBUMIN/GLOBULIN RATIO 0.8 (1.1-1.5); ALKALINE PHOSPHATASE 157 IU/L (46-116); ANION GAP 11 (8-16); ASPARTATE AMINO TRANSFERASE 25 U/L (10-37); BILIRUBIN,TOTAL 1.5 MG/DL (0.1-1.0); BLOOD UREA NITROGEN 25 MG/DL (7-18); BUN/CREATININE RATIO 21.9 (10.0-20.0); CALCIUM 8.4 MG/DL (8.5-10.1); CHLORIDE 102 MMOL/L (99-107); CREATININE 1.14 MG/DL (0.40-0.90); GLUCOSE 116 MG/DL (70-104); POTASSIUM 3.8 MMOL/L (3.5-5.1); SODIUM 134 MMOL/L (135-145); TOTAL CARBON DIOXIDE 21.5 MMOL/L (24-32); TOTAL PROTEIN 6.3 G/DL (6.4-8.2); eCRCL 45 ML/MIN; eGFR 51 ML/MIN
[2023-11-08 09:54] LABS: NUCLEATED RED BLOOD CELLS 2 /100WBC (0-0); TOTAL CELLS COUNTED 100
[2023-11-08 09:55] LABS: ANISOCYTOSIS 2+; POLYCHROMASIA FEW; TARGET CELLS FEW
[2023-11-08 09:57] LABS: LARGE PLATELETS FEW; PLATELET ESTIMATE NORMAL; SCHISTOCYTES FEW
[2023-11-08 11:00] VITALS: BP 143/90; PULSE 89; RESP 25; TEMP 98.1; O2SAT 99
[2023-11-08] MEDS ORDERED: CEPH-585 PO (11:18)
[2023-11-08] MEDS ORDERED: FURO-149 PO (11:22)
[2023-11-08 12:34] VITALS: RESP 16
[2023-11-08] MEDS ORDERED: ASPI81TA52 PO (19:39)
[2023-11-08] MEDS ORDERED: VANCOMYCIN LEVEL IV ONE (20:30)
== END 2023-11-08 15:25 | disposition home health service (06) | DRG 720 ==
LOC: ER 12:30 → ED HOLD 17:14 → CICU 2S 21:37 → PCU 3S 11-06 16:04
PROVIDERS: ADMIT Internal Medicine Critical Care Medicine; ATTEND Internal Medicine Critical Care Medicine
PROC: 02HV33Z Insertion of Infusion Device into Superior Vena Cava, Percutaneous Approach (ICD-10-PCS; 2023-11-01)
PROC: 5A09357 Assistance with Respiratory Ventilation, Less than 24 Consecutive Hours, Continuous Positive Airway Pressure (ICD-10-PCS; 2023-11-01)
PROC: 5A09357 Assistance with Respiratory Ventilation, Less than 24 Consecutive Hours, Continuous Positive Airway Pressure (ICD-10-PCS; 2023-11-02)
PROC: B4201ZZ Computerized Tomography (CT Scan) of Abdominal Aorta using Low Osmolar Contrast (ICD-10-PCS; 2023-11-06)
PROC: B4241ZZ Computerized Tomography (CT Scan) of Superior Mesenteric Artery using Low Osmolar Contrast (ICD-10-PCS; 2023-11-06)
PROC: B4281ZZ Computerized Tomography (CT Scan) of Bilateral Renal Arteries using Low Osmolar Contrast (ICD-10-PCS; 2023-11-06)
PROC: B42C1ZZ Computerized Tomography (CT Scan) of Pelvic Arteries using Low Osmolar Contrast (ICD-10-PCS; 2023-11-06)
PROC: B42H1ZZ Computerized Tomography (CT Scan) of Bilateral Lower Extremity Arteries using Low Osmolar Contrast (ICD-10-PCS; 2023-11-06)
PROC: B4211ZZ Computerized Tomography (CT Scan) of Celiac Artery using Low Osmolar Contrast (ICD-10-PCS; 2023-11-06)
PROC: B42H1ZZ Computerized Tomography (CT Scan) of Bilateral Lower Extremity Arteries using Low Osmolar Contrast (ICD-10-PCS; 2023-11-06)
PROC: 05HB33Z Insertion of Infusion Device into Right Basilic Vein, Percutaneous Approach (ICD-10-PCS; principal; 2023-11-07)
PROC: B54MZZA Ultrasonography of Right Upper Extremity Veins, Guidance (ICD-10-PCS; 2023-11-07)
DX: A41.01 Sepsis due to Methicillin susceptible Staphylococcus aureus (principal); K72.00 Acute and subacute hepatic failure without coma; N17.0 Acute kidney failure with tubular necrosis; J96.21 Acute and chronic respiratory failure with hypoxia; R65.21 Severe sepsis with septic shock; E83.39 Other disorders of phosphorus metabolism; K76.1 Chronic passive congestion of liver; N18.4 Chronic kidney disease, stage 4 (severe); I27.21 Secondary pulmonary arterial hypertension; I50.43 Acute on chronic combined systolic (congestive) and diastolic (congestive) heart failure; E46 Unspecified protein-calorie malnutrition; I13.0 Hypertensive heart and chronic kidney disease with heart failure and stage 1 through stage 4 chronic kidney disease, or unspecified chronic kidney disease; E87.20 Acidosis, unspecified; E03.9 Hypothyroidism, unspecified; E78.00 Pure hypercholesterolemia, unspecified; F15.90 Other stimulant use, unspecified, uncomplicated; I89.0 Lymphedema, not elsewhere classified; L03.115 Cellulitis of right lower limb; L03.116 Cellulitis of left lower limb; I21.A1 Myocardial infarction type 2; G47.33 Obstructive sleep apnea (adult) (pediatric); B96.20 Unspecified Escherichia coli [E. coli] as the cause of diseases classified elsewhere; I70.202 Unspecified atherosclerosis of native arteries of extremities, left leg; I87.2 Venous insufficiency (chronic) (peripheral); E86.0 Dehydration; R19.7 Diarrhea, unspecified; F17.210 Nicotine dependence, cigarettes, uncomplicated; Z68.37 Body mass index [BMI] 37.0-37.9, adult; Z88.8 Allergy status to other drugs, medicaments and biological substances; Z79.899 Other long term (current) drug therapy; Z90.49 Acquired absence of other specified parts of digestive tract; Z91.199 Patient's noncompliance with other medical treatment and regimen due to unspecified reason; Z82.5 Family history of asthma and other chronic lower respiratory diseases
CPT/HCPCS: 36410; 36415; 36556; 36600; 71045; 73700; 75635; 76937; 80053; 80202; 80305; 81001; 82436; 82570; 82800; 82803; 82810; 82948; 83605; 83615; 83735; 83880; 84100; 84133; 84145; 84300; 84439; 84443; 84484; 84540; 85007; 85008; 85018; 85025; 85610; 85651; 85730; 86038; 86060; 86140; 86160; 86256; 86430; 86703; 87040; 87070; 87077; 87081; 87186; 87207; 87340; 90732; 93005; 93306; 93308; 93925; 93970; 94660; 94760; 96365; 96366; 96367; 96375; 97116; 97161; 97530; 99291; 99292; A4615; A6196; A6209; A6212; A6213; A6222; A6223; A6253; A6258; A6446; A6449; C1751; C1758; G0378; J0696; J1170; J1644; J2060; J2270; J3370; J3475; J3490; J7030; J7040; J7050; J7070; J7120; P9047; Q9967

== ENCOUNTER 2023-11-14 07:04 | Emergency (ER) | payer MEDICAID ==
[~2023-11-14] VITALS: Ht 154.9 cm; Wt 87.3 kg
[~2023-11-14 07:04] MED LIST changes: +ASPI81TA52 PO; -CARV6.2553 PO; +CEPH-585 PO; -FURO-150 PO; -HYDR25TA5 PO; -LEVO175T7 PO; -POTA-366 PO; -PROB1TAB2 PO; +SPIR25TA5 PO
[2023-11-14] MEDS: ipratropium/albuterol 3ml nebule NEB ONE (08:18)
[2023-11-14 08:19] VITALS: PULSE 76; RESP 18; O2SAT 98
[2023-11-14 08:25] VITALS: PULSE 74; RESP 19; O2SAT 98
[2023-11-14 08:28] LABS: BASOPHILS # (AUTO) 0.1 X10'3 (0-0.2); EOSINOPHILS # (AUTO) 0.1 X10'3 (0-0.9); EOSINOPHILS % (AUTO) 1.2 % (0-6); HEMATOCRIT 34.9 % (35.0-45.0); LYMPHOCYTES # (AUTO) 1.2 X10'3 (1.1-4.8); LYMPHOCYTES % (AUTO) 12.1 % (21-51); MEAN CORPUSCULAR HEMOGLOBIN 28.7 PG (27.0-31.0); MEAN CORPUSCULAR HGB CONC 31.6 g/dL (33.0-36.5); MEAN PLATELET VOLUME 9.3 FL (7.4-10.4); MONOCYTES # (AUTO) 0.6 X10'3 (0-0.9); MONOCYTES % (AUTO) 6.5 % (2-12); NEUTROPHILS # (AUTO) 7.7 X10'3 (1.8-7.7); NEUTROPHILS % (AUTO) 79.2 % (42-75); PLATELET COUNT 417 X10'3 (140-440); RED BLOOD COUNT 3.84 X10'6 (4.20-5.60); RED CELL DISTRIBUTION WIDTH 21.3 % (11.5-14.5); WHITE BLOOD COUNT 9.7 X10'3 (4.5-11.0)
[2023-11-14 08:38] LABS: INR 1.2 INR; PROTHROMBIN TIME 12.4 SECONDS (9.0-12.0)
[2023-11-14 08:48] LABS: ALANINE AMINOTRANSFERASE 11 U/L (12-78); ALBUMIN 2.9 G/DL (3.4-5.0); ALBUMIN/GLOBULIN RATIO 0.8 (1.1-1.5); ALKALINE PHOSPHATASE 158 IU/L (46-116); ANION GAP 12 (8-16); ASPARTATE AMINO TRANSFERASE 26 U/L (10-37); BILIRUBIN,TOTAL 1.5 MG/DL (0.1-1.0); BLOOD UREA NITROGEN 19 MG/DL (7-18); BUN/CREATININE RATIO 12.7 (10.0-20.0); CALCIUM 8.7 MG/DL (8.5-10.1); CHLORIDE 109 MMOL/L (99-107); GLUCOSE 111 MG/DL (70-104); SODIUM 143 MMOL/L (135-145); TOTAL CARBON DIOXIDE 21.9 MMOL/L (24-32); TOTAL PROTEIN 6.7 G/DL (6.4-8.2); eCRCL 34 ML/MIN; eGFR 37 ML/MIN
[2023-11-14 08:56] LABS: LIPASE 36 U/L (16-77); PRO BRAIN NATRIURETIC PEPTIDE 5634 PG/ML (0-125)
[2023-11-14 09:32] LABS: ANISOCYTOSIS 3+; PLATELET ESTIMATE NORMAL
[2023-11-14 09:33] LABS: ACANTHOCYTES FEW; HYPOCHROMASIA 1+; STOMATOCYTES FEW; TARGET CELLS FEW; TEAR DROP CELLS FEW
[2023-11-14 12:29] VITALS: TEMP 97.5
[2023-11-14 12:55] LABS: BILIRUBIN,URINE SMALL (Neg); CLARITY,URINE CLOUDY (Clear); COLOR,URINE YELLOW (Yellow); GLUCOSE, URINE NEGATIVE (Neg); KETONES,URINE NEGATIVE (Neg); LEUKOCYTE ESTERASE ,URINE SMALL (Neg); NITRITES, URINE NEGATIVE (Neg); OCCULT BLOOD,URINE SMALL (Neg); PH,URINE 5.5 (4.8-8.0); PROTEIN,URINE 30 mg/dl (Neg); UA COLLECTION TYPE CLN CATCH MIDSTREAM; UROBILINOGEN,URINE 0.2 E.U/dL (0.2-1.0)
[2023-11-14 13:01] LABS: SQUAMOUS EPITHELIAL CELL,UR MANY /LPF (FEW)
[2023-11-14 13:02] LABS: BACTERIA,URINE 2+ /HPF (Neg); HYALINE CASTS 0-3 /LPF (NEGATIVE); RBC,URINE 20-50 /HPF (0-2); TRANSITIONAL EPI CELLS,URINE MODERATE /HPF; WBC,URINE 50-100 /HPF (0-4)
[2023-11-14 13:03] LABS: MUCUS STRANDS FEW /LPF (Neg)
[2023-11-14] MEDS: furosemide 10 MG/1 ML 10ml inj IV ONE (14:24)
[2023-11-14 15:27] VITALS: BP 112/83; PULSE 75; RESP 14; O2SAT 99
== END 2023-11-14 15:31 | disposition home or self-care (01) ==
LOC: ER 07:04
DX: I13.0 Hypertensive heart and chronic kidney disease with heart failure and stage 1 through stage 4 chronic kidney disease, or unspecified chronic kidney disease (principal); I50.9 Heart failure, unspecified; N18.9 Chronic kidney disease, unspecified; E78.00 Pure hypercholesterolemia, unspecified; E03.9 Hypothyroidism, unspecified; F12.90 Cannabis use, unspecified, uncomplicated; Z88.8 Allergy status to other drugs, medicaments and biological substances; Z79.899 Other long term (current) drug therapy; Z79.82 Long term (current) use of aspirin
CPT/HCPCS: 36415; 71045; 74176; 80053; 81001; 83605; 83690; 83880; 84484; 85008; 85025; 85610; 87040; 93005; 94640; 96374; 99285; J1940; 94760

== ENCOUNTER 2023-11-17 19:41 | Emergency (ER) | payer MEDICAID ==
[~2023-11-17] VITALS: Ht 154.9 cm; Wt 87.3 kg
[2023-11-17 20:09] VITALS: BP 99/68; PULSE 74; RESP 18; TEMP 98.1; O2SAT 98
[2023-11-17 21:24] LABS: BASOPHILS # (AUTO) 0.1 X10'3 (0-0.2); BASOPHILS % (AUTO) 1.2 % (0-1); EOSINOPHILS % (AUTO) 0.6 % (0-6); HEMATOCRIT 35.8 % (35.0-45.0); HEMOGLOBIN 11.3 g/dl (12.0-16.0); LYMPHOCYTES # (AUTO) 1.1 X10'3 (1.1-4.8); LYMPHOCYTES % (AUTO) 14.4 % (21-51); MEAN CORPUSCULAR HEMOGLOBIN 28.8 PG (27.0-31.0); MEAN CORPUSCULAR HGB CONC 31.5 g/dL (33.0-36.5); MEAN CORPUSCULAR VOLUME 91.4 FL (78-98); MEAN PLATELET VOLUME 8.6 FL (7.4-10.4); MONOCYTES # (AUTO) 0.3 X10'3 (0-0.9); MONOCYTES % (AUTO) 4.2 % (2-12); NEUTROPHILS # (AUTO) 6.1 X10'3 (1.8-7.7); NEUTROPHILS % (AUTO) 79.6 % (42-75); PLATELET COUNT 439 X10'3 (140-440); RED BLOOD COUNT 3.91 X10'6 (4.20-5.60); RED CELL DISTRIBUTION WIDTH 21.2 % (11.5-14.5); WHITE BLOOD COUNT 7.6 X10'3 (4.5-11.0)
[2023-11-17 21:40] LABS: ANISOCYTOSIS 3+; PLATELET ESTIMATE NORMAL
[2023-11-17 21:41] LABS: TARGET CELLS FEW
[2023-11-17 21:42] LABS: ELLIPTOCYTES FEW; STOMATOCYTES FEW
[2023-11-17 22:04] LABS: ALANINE AMINOTRANSFERASE 16 U/L (12-78); ALBUMIN 2.8 G/DL (3.4-5.0); ALBUMIN/GLOBULIN RATIO 0.7 (1.1-1.5); ALKALINE PHOSPHATASE 142 IU/L (46-116); ANION GAP 12 (8-16); ASPARTATE AMINO TRANSFERASE 20 U/L (10-37); BILIRUBIN,TOTAL 1.4 MG/DL (0.1-1.0); BLOOD UREA NITROGEN 19 MG/DL (7-18); BUN/CREATININE RATIO 11.1 (10.0-20.0); CALCIUM 9.3 MG/DL (8.5-10.1); CHLORIDE 108 MMOL/L (99-107); CREATININE 1.71 MG/DL (0.40-0.90); GLUCOSE 89 MG/DL (70-104); LIPASE 20 U/L (16-77); POTASSIUM 4.3 MMOL/L (3.5-5.1); SODIUM 142 MMOL/L (135-145); TOTAL CARBON DIOXIDE 21.6 MMOL/L (24-32); TOTAL PROTEIN 6.6 G/DL (6.4-8.2); eCRCL 30 ML/MIN; eGFR 32 ML/MIN
== END 2023-11-18 00:40 | disposition left against medical advice (07) ==
LOC: ER 19:41
DX: R10.9 Unspecified abdominal pain (principal); R11.10 Vomiting, unspecified; Z53.21 Procedure and treatment not carried out due to patient leaving prior to being seen by health care provider
CPT/HCPCS: 36415; 80053; 83690; 85008; 85025; 99281

== ENCOUNTER 2023-11-25 13:05 | Inpatient (IN) | payer MEDICAID ==
[~2023-11-25] VITALS: Ht 154.9 cm; Wt 87.0 kg
[2023-11-25 14:57] LABS: BASOPHILS % (AUTO) 0.6 % (0-1); EOSINOPHILS # (AUTO) 0.1 X10'3 (0-0.9); LYMPHOCYTES # (AUTO) 1.5 X10'3 (1.1-4.8); LYMPHOCYTES % (AUTO) 24.4 % (21-51); MEAN PLATELET VOLUME 8.5 FL (7.4-10.4); MONOCYTES # (AUTO) 0.6 X10'3 (0-0.9); MONOCYTES % (AUTO) 10.1 % (2-12); NEUTROPHILS # (AUTO) 3.8 X10'3 (1.8-7.7); NEUTROPHILS % (AUTO) 62.9 % (42-75); PLATELET COUNT 371 X10'3 (140-440)
[2023-11-25 15:14] LABS: MEAN CORPUSCULAR HGB CONC 31.3 g/dL (33.0-36.5); MEAN CORPUSCULAR VOLUME 92.5 FL (78-98); RED BLOOD COUNT 3.79 X10'6 (4.20-5.60); RED CELL DISTRIBUTION WIDTH 20.8 % (11.5-14.5)
[2023-11-25 15:18] LABS: ANION GAP 13 (8-16); BLOOD UREA NITROGEN 23 MG/DL (7-18); BUN/CREATININE RATIO 14.4 (10.0-20.0); CALCIUM 8.8 MG/DL (8.5-10.1); CHLORIDE 108 MMOL/L (99-107); GLUCOSE 90 MG/DL (70-104); POTASSIUM 3.6 MMOL/L (3.5-5.1); PRO BRAIN NATRIURETIC PEPTIDE 4924 PG/ML (0-125); SODIUM 143 MMOL/L (135-145); TOTAL CARBON DIOXIDE 21.7 MMOL/L (24-32); eCRCL 32 ML/MIN; eGFR 34 ML/MIN
[2023-11-25] MEDS: furosemide 40mg/4ml inj IV ONE (15:26)
[2023-11-25] MEDS ORDERED: ondansetron/PF 4mg/2ml inj IV PRN (16:25)
[2023-11-25] MEDS ORDERED: magnesium 4gm in 100ml NS 100 ML IV PRN (16:25)
[2023-11-25] MEDS ORDERED: magnesium Cl slow-release 64mg tablet PO PRN (16:25)
[2023-11-25] MEDS ORDERED: potassium Cl 20 mEq SR tablet PO PRN ×2 (16:25)
[2023-11-25] MEDS ORDERED: magnesium 2GM in 50ml NS 50 ML IV PRN (16:25)
[2023-11-25] MEDS ORDERED: potassium Cl 40MEQ/1/2NS 520ml 520 ML IV PRN (16:25)
[2023-11-25] MEDS ORDERED: acetaminophen 325mg tablet PO PRN (16:25)
[2023-11-25 17:06] LABS: C-REACTIVE PROTEIN 1.63 MG/DL (0.0-0.5)
[2023-11-25] MEDS: albuterol 2.5 MG/3 ML nebule NEB ONE (17:18)
[2023-11-25 17:20] VITALS: PULSE 75; RESP 17; O2SAT 99
[2023-11-25 17:27] LABS: URINE HCG NEGATIVE (NEG)
[2023-11-25 17:28] VITALS: PULSE 77; RESP 20; O2SAT 100
[2023-11-25] MEDS ORDERED: albuterol 2.5 MG/3 ML nebule NEB PRN (17:30)
[2023-11-25 17:38] LABS: URINE AMPHETAMINE SCREEN NEGATIVE (Neg); URINE BARBITUATE SCREEN NEGATIVE (Neg); URINE BENZODIAZEPINES SCREEN NEGATIVE (Neg); URINE CANNABINOID SCREEN NEGATIVE (Neg); URINE COCAINE SCREEN NEGATIVE (Neg); URINE METHADONE SCREEN NEGATIVE (Neg); URINE OPIATE SCREEN NEGATIVE (Neg); URINE PHENCYCLIDINE SCREEN NEGATIVE (Neg)
[2023-11-25] MEDS: normal saline 1000ML IV soln IVB ONE (18:04)
[2023-11-25 18:24] LABS: BILIRUBIN,URINE NEGATIVE (Neg); CLARITY,URINE CLEAR (Clear); COLOR,URINE YELLOW (Yellow); GLUCOSE, URINE NEGATIVE (Neg); KETONES,URINE NEGATIVE (Neg); LEUKOCYTE ESTERASE ,URINE TRACE (Neg); NITRITES, URINE NEGATIVE (Neg); OCCULT BLOOD,URINE NEGATIVE (Neg); PROTEIN,URINE NEGATIVE (Neg); UROBILINOGEN,URINE 0.2 E.U/dL (0.2-1.0)
[2023-11-25 18:26] LABS: UA COLLECTION TYPE VOIDED
[2023-11-25 18:37] LABS: SQUAMOUS EPITHELIAL CELL,UR MANY /LPF (FEW)
[2023-11-25 18:38] LABS: YEAST FEW /HPF (NEGATIVE)
[2023-11-25 18:39] LABS: BACTERIA,URINE 2+ /HPF (Neg)
[2023-11-25 18:40] LABS: RBC,URINE NONE SEEN /HPF (0-2); WBC,URINE 0-4 /HPF (0-4)
[2023-11-25 18:51] LABS: % IRON SATURATION 6 % (11-46); IRON 24 UG/DL (49-151); TOTAL IRON BINDING CAPACITY 381 UG/DL (259-388)
[2023-11-25 20:00] VITALS: RESP 24
[2023-11-25] MEDS ORDERED: furosemide 40mg/4ml inj IV SCH (20:00)
[2023-11-25 20:01] VITALS: PULSE 81; RESP 16; O2SAT 94
[2023-11-25 20:15] VITALS: BP 120/83; PULSE 87; RESP 22; TEMP 97.7; O2SAT 97
[2023-11-25] MEDS: heparin, porcine 5000 units/ml vial SQ SCH (20:22)
[2023-11-25] MEDS: furosemide 40mg/4ml inj IV SCH (20:22)
[2023-11-25] MEDS: morphine 2 MG/ML inj. syringe IV PRN (20:31)
[2023-11-25 22:00] VITALS: BP 111/67; PULSE 82; RESP 25; TEMP 97.7; O2SAT 99
[2023-11-26] MEDS: acetaminophen 325mg tablet PO SCH (00:03)
[2023-11-26 02:00] VITALS: BP 135/81; PULSE 87; RESP 22; TEMP 97.9; O2SAT 99
[2023-11-26] MEDS: HYDROcodone/acetaminophen 5mg/325mg tablet PO PRN (02:10)
[2023-11-26 05:56] LABS: BASOPHILS # (AUTO) 0.1 X10'3 (0-0.2); EOSINOPHILS # (AUTO) 0.2 X10'3 (0-0.9); EOSINOPHILS % (AUTO) 2.4 % (0-6); HEMATOCRIT 33.9 % (35.0-45.0); HEMOGLOBIN 10.6 g/dl (12.0-16.0); LYMPHOCYTES # (AUTO) 1.4 X10'3 (1.1-4.8); LYMPHOCYTES % (AUTO) 20.1 % (21-51); MEAN CORPUSCULAR HGB CONC 31.3 g/dL (33.0-36.5); MEAN CORPUSCULAR VOLUME 89.3 FL (78-98); MEAN PLATELET VOLUME 8.6 FL (7.4-10.4); MONOCYTES # (AUTO) 0.6 X10'3 (0-0.9); MONOCYTES % (AUTO) 9.2 % (2-12); NEUTROPHILS # (AUTO) 4.6 X10'3 (1.8-7.7); NEUTROPHILS % (AUTO) 67.3 % (42-75); PLATELET COUNT 348 X10'3 (140-440); RED BLOOD COUNT 3.79 X10'6 (4.20-5.60); RED CELL DISTRIBUTION WIDTH 20.6 % (11.5-14.5); WHITE BLOOD COUNT 6.8 X10'3 (4.5-11.0)
[2023-11-26 05:58] LABS: ALANINE AMINOTRANSFERASE 18 U/L (12-78); ALBUMIN 2.9 G/DL (3.4-5.0); ALBUMIN/GLOBULIN RATIO 0.7 (1.1-1.5); ALKALINE PHOSPHATASE 158 IU/L (46-116); ANION GAP 13 (8-16); ASPARTATE AMINO TRANSFERASE 22 U/L (10-37); BILIRUBIN,TOTAL 1.2 MG/DL (0.1-1.0); BLOOD UREA NITROGEN 24 MG/DL (7-18); BUN/CREATININE RATIO 14.7 (10.0-20.0); CALCIUM 8.8 MG/DL (8.5-10.1); CHLORIDE 107 MMOL/L (99-107); CREATININE 1.63 MG/DL (0.40-0.90); GLUCOSE 75 MG/DL (70-104); POTASSIUM 3.6 MMOL/L (3.5-5.1); SODIUM 142 MMOL/L (135-145); TOTAL CARBON DIOXIDE 21.9 MMOL/L (24-32); eCRCL 32 ML/MIN; eGFR 34 ML/MIN
[2023-11-26 07:25] LABS: ANISOCYTOSIS 3+; BURR CELLS FEW; HYPOCHROMASIA 1+; PLATELET ESTIMATE NORMAL; POLYCHROMASIA 1+; TARGET CELLS FEW
[2023-11-26 08:00] VITALS: BP 106/80; PULSE 83; RESP 23; TEMP 98.1; O2SAT 96
[2023-11-26] MEDS: pantoprazole 40mg Tablet.DR PO SCH (10:27)
[2023-11-26] MEDS ORDERED: CEPH250T PO (11:15)
[2023-11-26] MEDS ORDERED: FURO-149 PO (11:15)
[2023-11-26] MEDS ORDERED: POTA-207 PO (11:15)
[2023-11-26] MEDS ORDERED: ACET-890 PO (11:19)
== END 2023-11-26 14:20 | disposition home or self-care (01) | DRG 194 ==
LOC: ER 13:06 → ED HOLD 16:25 → PCU 3S 19:23
PROVIDERS: ADMIT Internal Medicine; ATTEND Internal Medicine
DX: I13.0 Hypertensive heart and chronic kidney disease with heart failure and stage 1 through stage 4 chronic kidney disease, or unspecified chronic kidney disease (principal); I27.20 Pulmonary hypertension, unspecified; J96.10 Chronic respiratory failure, unspecified whether with hypoxia or hypercapnia; D64.9 Anemia, unspecified; E03.9 Hypothyroidism, unspecified; J44.9 Chronic obstructive pulmonary disease, unspecified; N18.30 Chronic kidney disease, stage 3 unspecified; I50.33 Acute on chronic diastolic (congestive) heart failure; I89.0 Lymphedema, not elsewhere classified; Z79.899 Other long term (current) drug therapy
CPT/HCPCS: 36415; 71045; 74176; 80048; 80053; 80305; 81001; 81025; 83540; 83550; 83605; 83690; 83880; 84484; 85008; 85025; 85651; 86140; 87040; 93005; 93308; 94640; 94760; 97116; 97161; 97530; 99285; A6446; A6449; G0378; J1644; J1940; J2270; J7030

== ENCOUNTER 2023-11-27 14:43 | Emergency (ER) | payer MEDICAID ==
[~2023-11-27] VITALS: Ht 154.9 cm; Wt 87.3 kg
[~2023-11-27 14:43] MED LIST changes: +ACET-890 PO; -CEPH-585 PO; +CEPH250T PO; +POTA-207 PO
[2023-11-27 15:25] LABS: BASOPHILS # (AUTO) 0.1 X10'3 (0-0.2); EOSINOPHILS # (AUTO) 0.2 X10'3 (0-0.9); HEMOGLOBIN 10.7 g/dl (12.0-16.0); NEUTROPHILS # (AUTO) 4.6 X10'3 (1.8-7.7)
[2023-11-27 15:28] LABS: BASOPHILS % (AUTO) 0.9 % (0-1); EOSINOPHILS % (AUTO) 3.2 % (0-6); HEMATOCRIT 34.8 % (35.0-45.0); LYMPHOCYTES # (AUTO) 1.6 X10'3 (1.1-4.8); MEAN CORPUSCULAR HEMOGLOBIN 28.1 PG (27.0-31.0); MEAN CORPUSCULAR HGB CONC 30.7 g/dL (33.0-36.5); MEAN CORPUSCULAR VOLUME 91.7 FL (78-98); MEAN PLATELET VOLUME 8.6 FL (7.4-10.4); MONOCYTES # (AUTO) 0.5 X10'3 (0-0.9); MONOCYTES % (AUTO) 7.5 % (2-12); NEUTROPHILS % (AUTO) 65.4 % (42-75); PLATELET COUNT 318 X10'3 (140-440); RED CELL DISTRIBUTION WIDTH 20.9 % (11.5-14.5)
[2023-11-27 15:39] LABS: ALBUMIN 2.7 G/DL (3.4-5.0); ANION GAP 9 (8-16); BLOOD UREA NITROGEN 31 MG/DL (7-18); BUN/CREATININE RATIO 16.1 (10.0-20.0); CALCIUM 8.5 MG/DL (8.5-10.1); CHLORIDE 108 MMOL/L (99-107); CREATININE 1.92 MG/DL (0.40-0.90); GLUCOSE 110 MG/DL (70-104); POTASSIUM 4.3 MMOL/L (3.5-5.1); PRO BRAIN NATRIURETIC PEPTIDE 6514 PG/ML (0-125); SODIUM 139 MMOL/L (135-145); TOTAL CARBON DIOXIDE 21.6 MMOL/L (24-32); eCRCL 27 ML/MIN; eGFR 28 ML/MIN
[2023-11-27 15:52] LABS: ANISOCYTOSIS 3+; NUCLEATED RED BLOOD CELLS 8 /100WBC (0-0); PLATELET ESTIMATE NORMAL; TOTAL CELLS COUNTED 100
[2023-11-27 15:57] LABS: BURR CELLS FEW; ELLIPTOCYTES FEW; HYPOCHROMASIA 1+; POLYCHROMASIA FEW; STOMATOCYTES FEW; TARGET CELLS FEW; TEAR DROP CELLS FEW
[2023-11-27] MEDS: ipratropium/albuterol 3ml nebule NEB ONE (16:11)
[2023-11-27 16:13] VITALS: PULSE 71; RESP 16; O2SAT 93
[2023-11-27 16:20] VITALS: PULSE 69; RESP 20
[2023-11-27 18:52] VITALS: BP 115/74; PULSE 80; RESP 20; TEMP 98; O2SAT 93
== END 2023-11-27 18:54 | disposition home or self-care (01) ==
LOC: ER 14:44
DX: R06.00 Dyspnea, unspecified (principal); R42 Dizziness and giddiness; I11.0 Hypertensive heart disease with heart failure; I50.9 Heart failure, unspecified; E78.00 Pure hypercholesterolemia, unspecified; E03.9 Hypothyroidism, unspecified; F12.90 Cannabis use, unspecified, uncomplicated; Z90.49 Acquired absence of other specified parts of digestive tract; Z88.8 Allergy status to other drugs, medicaments and biological substances; Z79.899 Other long term (current) drug therapy; Z79.2 Long term (current) use of antibiotics
CPT/HCPCS: 36415; 71045; 80048; 83880; 84145; 84484; 85007; 85025; 93005; 94640; 94760; 99285; A6253; A6446; A6449

== ENCOUNTER 2023-11-29 22:14 | Inpatient (IN) | payer MEDICAID ==
[~2023-11-29] VITALS: Ht 154.9 cm; Wt 91.8 kg
[2023-11-29 23:04] LABS: ALBUMIN 3.2 G/DL (3.4-5.0); ANION GAP 20 (8-16); BLOOD UREA NITROGEN 45 MG/DL (7-18); BUN/CREATININE RATIO 16.7 (10.0-20.0); CALCIUM 9.4 MG/DL (8.5-10.1); CHLORIDE 105 MMOL/L (99-107); GLUCOSE 86 MG/DL (70-104); POTASSIUM 4.8 MMOL/L (3.5-5.1); PRO BRAIN NATRIURETIC PEPTIDE 11281 PG/ML (0-125); SODIUM 142 MMOL/L (135-145); TOTAL CARBON DIOXIDE 17.5 MMOL/L (24-32); eCRCL 19 ML/MIN; eGFR 19 ML/MIN
[2023-11-30] VITALS (35 sets, daily range): BP systolic 79–134; BP diastolic 50–85; PULSE 81–103; RESP 11–25; O2SAT 78–100
[2023-11-30 00:12] LABS: BASOPHILS # (AUTO) 0.1 X10'3 (0-0.2); EOSINOPHILS % (AUTO) 0.1 % (0-6); HEMOGLOBIN 11.6 g/dl (12.0-16.0); MONOCYTES # (AUTO) 0.5 X10'3 (0-0.9); RED CELL DISTRIBUTION WIDTH 20.5 % (11.5-14.5)
[2023-11-30 00:14] LABS: HEMATOCRIT 36.6 % (35.0-45.0); LYMPHOCYTES # (AUTO) 1.4 X10'3 (1.1-4.8); LYMPHOCYTES % (AUTO) 17.9 % (21-51); MEAN CORPUSCULAR HGB CONC 31.6 g/dL (33.0-36.5); MEAN CORPUSCULAR VOLUME 88.5 FL (78-98); MEAN PLATELET VOLUME 8.5 FL (7.4-10.4); MONOCYTES % (AUTO) 5.8 % (2-12); NEUTROPHILS % (AUTO) 75.2 % (42-75); PLATELET COUNT 350 X10'3 (140-440); RED BLOOD COUNT 4.14 X10'6 (4.20-5.60)
[2023-11-30 01:20] LABS: NUCLEATED RED BLOOD CELLS 12 /100WBC (0-0); TOTAL CELLS COUNTED 100
[2023-11-30 01:21] LABS: ANISOCYTOSIS 3+; BURR CELLS FEW; PLATELET ESTIMATE NORMAL; POLYCHROMASIA FEW; TARGET CELLS FEW; TEAR DROP CELLS FEW
[2023-11-30] MEDS: furosemide 10 MG/1 ML 10ml inj IV ONE (02:15)
[2023-11-30] MEDS: acetaminophen 1,000mg/100ml IV 100 ML IV STA (02:43)
[2023-11-30] MEDS: CefTRIAXone/D5W-Rocephin 1gm 50 ML IV ONE (03:59)
[2023-11-30] MEDS ORDERED: potassium Cl 40MEQ/1/2NS 520ml 520 ML IV PRN (04:45)
[2023-11-30] MEDS ORDERED: magnesium 2GM in 50ml NS 50 ML IV PRN (04:45)
[2023-11-30] MEDS ORDERED: magnesium hydroxide 30ml (MOM) UD suspension PO PRN ×2 (04:45→11:05)
[2023-11-30] MEDS ORDERED: mag hydrox/Alum hydrox/simeth 30ml oral suspension PO PRN (04:45)
[2023-11-30] MEDS ORDERED: acetaminophen 325mg tablet PO PRN ×3 (04:45→11:05)
[2023-11-30] MEDS ORDERED: potassium Cl 20 mEq SR tablet PO PRN ×2 (04:45)
[2023-11-30] MEDS ORDERED: ondansetron/PF 4mg/2ml inj IV PRN ×2 (04:45→11:05)
[2023-11-30] MEDS ORDERED: magnesium Cl slow-release 64mg tablet PO PRN (04:45)
[2023-11-30] MEDS: LidoCAINE 2% Topical Jelly 11mL syringe (UROJET) TOP ONE ×2 (06:05→11:05)
[2023-11-30] MEDS ORDERED: HYDROmorphone 1 mg/ml syringe IV PRN (06:05)
[2023-11-30] MEDS: ringers solution, lacted 1,000 ML IV SCH (07:15)
[2023-11-30 07:45] LABS: BILIRUBIN,URINE SMALL (Neg); CLARITY,URINE CLOUDY (Clear); COLOR,URINE YELLOW (Yellow); GLUCOSE, URINE NEGATIVE (Neg); KETONES,URINE TRACE mg/dl (Neg); LEUKOCYTE ESTERASE ,URINE NEGATIVE (Neg); NITRITES, URINE NEGATIVE (Neg); OCCULT BLOOD,URINE NEGATIVE (Neg); PROTEIN,URINE 30 mg/dl (Neg)
[2023-11-30 07:46] LABS: ABG BASE EXCESS -11.6 mmol/L (-2.0-2.0); ABG OXYGEN SATURATION 94.8 % (94-97); ABG PCO2 (T) 36.3 mmHg (32.0-45.0); ABG PH (T) 7.235 (7.350-7.450); ABG PO2 (T) 95.1 mmHg (75.0-100.0); FCOHb 0.3 % (0.0-3.9); FHHb 5.2 % (0.0-5.0); FMetHb 0.5 % (0.0-1.5); MODE MASK - BIPAP; PATIENT TEMPERATURE 37.1; RESPIRATORY RATE 14 b/min; TIDAL VOLUME 622 mL
[2023-11-30 07:52] LABS: URINE AMPHETAMINE SCREEN POSITIVE (Neg); URINE BARBITUATE SCREEN NEGATIVE (Neg); URINE BENZODIAZEPINES SCREEN NEGATIVE (Neg); URINE CANNABINOID SCREEN NEGATIVE (Neg); URINE COCAINE SCREEN NEGATIVE (Neg); URINE METHADONE SCREEN NEGATIVE (Neg); URINE OPIATE SCREEN POSITIVE (Neg); URINE PHENCYCLIDINE SCREEN NEGATIVE (Neg)
[2023-11-30 07:54] LABS: SQUAMOUS EPITHELIAL CELL,UR MANY /LPF (FEW)
[2023-11-30] MEDS: morphine 4 MG/ML inj SYRINge IV ONE ×3 (07:55→08:56)
[2023-11-30] MEDS: ringers solution, lacted 1,000 ML IV ONE ×6 (07:58→14:56)
[2023-11-30 07:59] LABS: BACTERIA,URINE 1+ /HPF (Neg)
[2023-11-30 08:00] LABS: TRANSITIONAL EPI CELLS,URINE MODERATE /HPF
[2023-11-30] MEDS: K and/or MAG REPLACEMENT MC SCH (08:00)
[2023-11-30] MEDS ORDERED: furosemide 10 MG/1 ML 10ml inj IV ONE (08:00)
[2023-11-30] MEDS: heparin, porcine 5000 units/ml vial SQ SCH (08:00)
[2023-11-30] MEDS ORDERED: sodium bicarbonate (8.4%) 1 mEq/ml syringe ONE (08:00)
[2023-11-30] MEDS: clindamycin 150mg capsule PO SCH (08:00)
[2023-11-30] MEDS: docusate sod 100mg capsule PO SCH (08:00)
[2023-11-30] MEDS: normal saline 1000ML IV soln IVB ONE (08:03)
[2023-11-30 08:24] LABS: CAL OXALATE CRYSTALS 1+ /HPF (NEGATIVE)
[2023-11-30 08:28] LABS: RENAL CELLS, URINE MODERATE /HPF
[2023-11-30 08:31] LABS: UA COLLECTION TYPE STRAIGHT CATH
[2023-11-30] MEDS: sodium bicarbonate 1meq/ml inj 150 ML in dextrose 5%-water 1,000 ML IV SCH (08:45)
[2023-11-30] MEDS: sodium bicarbonate (8.4%) 1 mEq/ml syringe IV ONE (08:48)
[2023-11-30] MEDS: sodium bicarbonate (8.4%) 1 mEq/ml syringe ONE (08:51)
[2023-11-30] MEDS ORDERED: LIDOcaine 2% jelly 6ml syringe ***for topical use only MM ONE (09:00)
[2023-11-30] MEDS: albumin (human) 25% 100 ML IV solution IV SCH (09:52)
[2023-11-30] MEDS: LidoCAINE 2% Topical Jelly 11mL syringe (UROJET) MM ONE (10:16)
[2023-11-30] MEDS: albumin (human) 25% 100ml IV 100 ML in normal saline 500ml IV soln 400 ML IV ONE (10:55)
[2023-11-30 10:59] LABS: ABG BASE EXCESS -8.8 mmol/L (-2.0-2.0); ABG HCO3 16.5 mmol/L (22.0-26.0); ABG OXYGEN SATURATION 91.7 % (94-97); ABG PCO2 (T) 32.3 mmHg (32.0-45.0); ABG PH (T) 7.322 (7.350-7.450); ABG PO2 (T) 71.1 mmHg (75.0-100.0); FCOHb 0.3 % (0.0-3.9); FHHb 8.2 % (0.0-5.0); FMetHb 0.4 % (0.0-1.5); FO2Hb 91.1 % (94-97); MODE MASK - BIPAP; PATIENT TEMPERATURE 36.2; RESPIRATORY RATE 14 b/min; TIDAL VOLUME 747 mL; TOTAL HEMOGLOBIN 10.8 G/dl (12.0-16.0)
[2023-11-30] MEDS ORDERED: sevoflurane 250ml liquid IH ONE (11:15)
[2023-11-30] MEDS ORDERED: NORepinephrine 1 mg/ml inj IV ONE (11:39)
[2023-11-30 12:02] LABS: ISTAT CREATININE 2.8 mg/dL (0.6-1.1); ISTAT HGB 12.2 g/dl (12.0-16.0); ISTAT IONIZED CALCIUM 1.11 mmol/L (1.03-1.32); ISTAT K 4.7 mmol/L (3.5-5.1); POC BUN/CREATININE RATIO 14.6 (6.6-38.0)
[2023-11-30 12:09] LABS: ABG BASE EXCESS -11.9 mmol/L (-2.0-2.0); ABG HCO3 15.9 mmol/L (22.0-26.0); ABG OXYGEN SATURATION 98.8 % (94-97); ABG PCO2 (T) 39.9 mmHg (32.0-45.0); ABG PH (T) 7.208 (7.350-7.450); ABG PO2 (T) 179.5 mmHg (75.0-100.0); FCOHb 0.3 % (0.0-3.9); FHHb 1.2 % (0.0-5.0); FMetHb 0.4 % (0.0-1.5); FO2Hb 98.1 % (94-97); TOTAL HEMOGLOBIN 11.1 G/dl (12.0-16.0)
[2023-11-30] MEDS ORDERED: ceFOXitin 1000 MG inj ONE ×2 (12:18)
[2023-11-30] MEDS ORDERED: sodium bicarbonate (8.4%) inj. 1 MEQ/ML ML ONE ×3 (12:18→12:19)
[2023-11-30] MEDS ORDERED: 0.9 % SODIUM CHLORIDE 10 ML VIAL ONE ×2 (12:18→12:19)
[2023-11-30] MEDS ORDERED: rocuronium 10mg/ml inj IV ONE ×2 (12:18)
[2023-11-30] MEDS ORDERED: LIDOcaine 1%/PF 5ML 10 MG/ML VIAL ONE (12:19)
[2023-11-30] MEDS ORDERED: etomidate 2mg/ml inj. ONE (12:19)
[2023-11-30] MEDS: midazolam 1 mg/ML 2ml injection IV ONE (12:25)
[2023-11-30] MEDS ORDERED: fentaNYL/PF 50MCG/1 ML 2ML syringe IV PRN (12:25)
[2023-11-30] MEDS ORDERED: MIDAZOLAM IN NACL,ISO-OSMOT/PF 100 ML IV SCH (12:25)
[2023-11-30] MEDS: FENTANYL-0.9 % NACL/PF 100 ML IV SCH (12:25)
[2023-11-30] MEDS: MIDAZOLAM IN NACL,ISO-OSMOT/PF 100 ML IV SCH (12:40)
[2023-11-30] MEDS ORDERED: fentaNYL/PF 50MCG/1 ML 2ML syringe ONE (12:43)
[2023-11-30] MEDS ORDERED: albumin (Human) 5% 250ml 500 ML IV ONE (13:26)
[2023-11-30 13:32] LABS: ABG BASE EXCESS -4.7 mmol/L (-2.0-2.0); ABG HCO3 21.3 mmol/L (22.0-26.0); ABG OXYGEN SATURATION 99.6 % (94-97); ABG PCO2 (T) 41.3 mmHg (32.0-45.0); ABG PH (T) 7.326 (7.350-7.450); ABG PO2 (T) 329.5 mmHg (75.0-100.0); FCOHb 0.3 % (0.0-3.9); FHHb 0.4 % (0.0-5.0); FMetHb 0.4 % (0.0-1.5); FO2Hb 98.9 % (94-97); MODE VENT - SIMV/VC; PATIENT TEMPERATURE 35.9; PEEP 5 cm H2O; RESPIRATORY RATE 12 b/min; TIDAL VOLUME 500 mL; TOTAL HEMOGLOBIN 10.5 G/dl (12.0-16.0)
[2023-11-30] MEDS ORDERED: NORepinephrine 8mg/ 250ml NS 250 ML IV PRN (15:05)
[2023-11-30] MEDS ORDERED: DOBUTamine-DoBUTrex 500mg/D5W 250 ML IV PRN (15:05)
[2023-11-30 15:06] LABS: BASOPHILS # (AUTO) 0.1 X10'3 (0-0.2); EOSINOPHILS % (AUTO) 0 % (0-6)
[2023-11-30 15:08] LABS: BASOPHILS % (AUTO) 0.6 % (0-1); HEMATOCRIT 30.5 % (35.0-45.0); HEMOGLOBIN 9.5 g/dl (12.0-16.0); LYMPHOCYTES % (AUTO) 8.4 % (21-51); MEAN CORPUSCULAR HEMOGLOBIN 27.7 PG (27.0-31.0); MEAN CORPUSCULAR VOLUME 89.4 FL (78-98); MEAN PLATELET VOLUME 8.6 FL (7.4-10.4); MONOCYTES # (AUTO) 0.7 X10'3 (0-0.9); MONOCYTES % (AUTO) 5.6 % (2-12); NEUTROPHILS # (AUTO) 10.4 X10'3 (1.8-7.7); NEUTROPHILS % (AUTO) 85.4 % (42-75); PLATELET COUNT 247 X10'3 (140-440); RED BLOOD COUNT 3.41 X10'6 (4.20-5.60); RED CELL DISTRIBUTION WIDTH 20.4 % (11.5-14.5); WHITE BLOOD COUNT 12.2 X10'3 (4.5-11.0)
[2023-11-30 15:25] LABS: ALANINE AMINOTRANSFERASE 26 U/L (12-78); ALBUMIN 3.3 G/DL (3.4-5.0); ALBUMIN/GLOBULIN RATIO 1.3 (1.1-1.5); ALKALINE PHOSPHATASE 110 IU/L (46-116); ANION GAP 13 (8-16); ASPARTATE AMINO TRANSFERASE 54 U/L (10-37); BILIRUBIN,TOTAL 1.8 MG/DL (0.1-1.0); BLOOD UREA NITROGEN 43 MG/DL (7-18); BUN/CREATININE RATIO 15.2 (10.0-20.0); CALCIUM 7.8 MG/DL (8.5-10.1); CHLORIDE 108 MMOL/L (99-107); CREATININE 2.83 MG/DL (0.40-0.90); GLUCOSE 151 MG/DL (70-104); POTASSIUM 4.4 MMOL/L (3.5-5.1); SODIUM 146 MMOL/L (135-145); TOTAL CARBON DIOXIDE 24.8 MMOL/L (24-32); TOTAL PROTEIN 5.9 G/DL (6.4-8.2); eCRCL 18 ML/MIN; eGFR 18 ML/MIN
[2023-11-30] MEDS: pantoprazole 40MG/NS 100ML BAG 100 ML IV SCH (15:50)
[2023-11-30] MEDS: DOBUTamine-DoBUTrex 500mg/D5W 250 ML IV PRN (15:51)
[2023-11-30] MEDS: NORepinephrine 8mg/ 250ml NS 250 ML IV PRN (15:52)
[2023-11-30] MEDS: piperacillin/tazo 3.375gm/50ml 50 ML IV SCH (15:54)
[2023-11-30] MEDS ORDERED: piperacillin/tazo 3.375gm/50ml 50 ML IV SCH (16:00)
[2023-11-30] MEDS ORDERED: ALLO300T8 PO (16:53)
[2023-11-30] MEDS ORDERED: LEVO200T8 PO (16:53)
[2023-11-30] MEDS ORDERED: POTA-207 PO (16:53)
[2023-11-30] MEDS ORDERED: FURO40TA4 PO (16:53)
[2023-11-30] MEDS ORDERED: ASPI-1475 PO (16:53)
[2023-11-30] MEDS ORDERED: vasopressin inj. 40 UNIT in dextrose 5%-water 50ml 38 ML IV SCH (17:10)
[2023-11-30] MEDS ORDERED: VASOPRESSIN IV SCH (17:17)
[2023-11-30] MEDS ORDERED: NORMAL SALINE IV SCH (17:17)
[2023-11-30] MEDS: albumin (human) 25% 100 ML IV solution IV ONE (17:24)
[2023-11-30] MEDS: albumin (Human) 5% 250ml 250 ML IV ONE (17:26)
[2023-11-30] MEDS: vasopressin inj. 40 UNIT in normal saline 50ml IV soln 38 ML IV SCH (17:41)
[2023-11-30 18:28] LABS: ABG BASE EXCESS -8.9 mmol/L (-2.0-2.0); ABG HCO3 20.1 mmol/L (22.0-26.0); ABG OXYGEN SATURATION 82.4 % (94-97); ABG PCO2 (T) 58.1 mmHg (32.0-45.0); ABG PH (T) 7.154 (7.350-7.450); ABG PO2 (T) 59.9 mmHg (75.0-100.0); FCOHb 0.3 % (0.0-3.9); FHHb 17.5 % (0.0-5.0); FMetHb 0.3 % (0.0-1.5); FO2Hb 81.9 % (94-97); MODE PRVC; PATIENT TEMPERATURE 36.7; PEEP 5 cm H2O; RESPIRATORY RATE 12 b/min; TIDAL VOLUME 375 mL; TOTAL HEMOGLOBIN 10.5 G/dl (12.0-16.0)
[2023-11-30] MEDS: albumin (Human) 5% 250ml 250 ML IV SCH (18:47)
[2023-11-30 19:45] LABS: ALANINE AMINOTRANSFERASE 26 U/L (12-78); ALBUMIN 4.7 G/DL (3.4-5.0); ALBUMIN/GLOBULIN RATIO 2.1 (1.1-1.5); ALKALINE PHOSPHATASE 91 IU/L (46-116); ANION GAP 21 (8-16); ASPARTATE AMINO TRANSFERASE 49 U/L (10-37); BILIRUBIN,TOTAL 1.8 MG/DL (0.1-1.0); BLOOD UREA NITROGEN 42 MG/DL (7-18); BUN/CREATININE RATIO 14.2 (10.0-20.0); CALCIUM 7.6 MG/DL (8.5-10.1); CHLORIDE 106 MMOL/L (99-107); CREATININE 2.96 MG/DL (0.40-0.90); GLUCOSE 147 MG/DL (70-104); MAGNESIUM 1.4 MG/DL (1.5-2.4); PHOSPHORUS 7.2 MG/DL (2.3-4.5); POTASSIUM 4.7 MMOL/L (3.5-5.1); SODIUM 146 MMOL/L (135-145); TOTAL CARBON DIOXIDE 19.1 MMOL/L (24-32); TOTAL PROTEIN 6.9 G/DL (6.4-8.2); eCRCL 17 ML/MIN; eGFR 17 ML/MIN
[2023-11-30] MEDS ORDERED: heparin, porcine 5000 units/ml vial SQ SCH (20:00)
[2023-11-30] MEDS: magnesium 4gm in 100ml NS 100 ML IV PRN (20:56)
[2023-11-30 20:58] LABS: ABG BASE EXCESS -8.7 mmol/L (-2.0-2.0); ABG HCO3 18.2 mmol/L (22.0-26.0); ABG OXYGEN SATURATION 92.9 % (94-97); ABG PCO2 (T) 44.3 mmHg (32.0-45.0); ABG PH (T) 7.235 (7.350-7.450); ABG PO2 (T) 80.8 mmHg (75.0-100.0); FCOHb 0.3 % (0.0-3.9); FHHb 7.1 % (0.0-5.0); FMetHb 0.3 % (0.0-1.5); FO2Hb 92.3 % (94-97); MODE PRVC; PATIENT TEMPERATURE 37.4; PEEP 5 cm H2O; RESPIRATORY RATE 20 b/min; TIDAL VOLUME 400 mL; TOTAL HEMOGLOBIN 10.1 G/dl (12.0-16.0)
[2023-11-30 21:19] LABS: ABG BASE EXCESS -12.2 mmol/L (-2.0-2.0); ABG HCO3 14.3 mmol/L (22.0-26.0); ABG OXYGEN SATURATION 86.2 % (94-97); ABG PCO2 (T) 35.1 mmHg (32.0-45.0); ABG PO2 (T) 62.7 mmHg (75.0-100.0); FCOHb 0.4 % (0.0-3.9); FHHb 13.7 % (0.0-5.0); FMetHb 0.3 % (0.0-1.5); FO2Hb 85.6 % (94-97); MODE RESUS BAG; PATIENT TEMPERATURE 37.4; TOTAL HEMOGLOBIN 10.6 G/dl (12.0-16.0)
[2023-11-30] MEDS: furosemide inj 1,000 MG in normal saline 250ml IV soln 150 ML IV SCH (23:16)
[2023-11-30] MEDS: epiNEPHrine inj 5 MG in normal saline 250ml IV soln 245 ML IV SCH (23:19)
[2023-12-01] VITALS (38 sets, daily range): BP systolic 66–154; BP diastolic 42–98; PULSE 73–103; RESP 19–26; TEMP 100; O2SAT 85–100
[2023-12-01 01:18] LABS: ABG BASE EXCESS -11.5 mmol/L (-2.0-2.0); ABG HCO3 16.1 mmol/L (22.0-26.0); ABG OXYGEN SATURATION 95.9 % (94-97); ABG PCO2 (T) 43.4 mmHg (32.0-45.0); ABG PH (T) 7.189 (7.350-7.450); ABG PO2 (T) 98.1 mmHg (75.0-100.0); FCOHb 0.4 % (0.0-3.9); FHHb 4.1 % (0.0-5.0); FMetHb 0.3 % (0.0-1.5); FO2Hb 95.2 % (94-97); MODE PRVC; PATIENT TEMPERATURE 37.4; PEEP 8 cm H2O; RESPIRATORY RATE 20 b/min; TIDAL VOLUME 400 mL; TOTAL HEMOGLOBIN 10.8 G/dl (12.0-16.0)
[2023-12-01] MEDS: furosemide 10 MG/1 ML 10ml inj IV ONE (01:34)
[2023-12-01 02:18] LABS: BASOPHILS % (AUTO) 0.1 % (0-1); EOSINOPHILS % (AUTO) 0 % (0-6)
[2023-12-01 02:20] LABS: LYMPHOCYTES # (AUTO) 1.7 X10'3 (1.1-4.8); LYMPHOCYTES % (AUTO) 13.7 % (21-51); MONOCYTES # (AUTO) 0.8 X10'3 (0-0.9); MONOCYTES % (AUTO) 6.6 % (2-12); NEUTROPHILS % (AUTO) 79.6 % (42-75); PLATELET COUNT 262 X10'3 (140-440); WHITE BLOOD COUNT 12.5 X10'3 (4.5-11.0)
[2023-12-01 02:29] LABS: H PYLORI ANTIBODY NEGATIVE (Neg)
[2023-12-01 02:30] LABS: ALANINE AMINOTRANSFERASE 78 U/L (12-78); ALBUMIN 4.5 G/DL (3.4-5.0); ALBUMIN/GLOBULIN RATIO 2.1 (1.1-1.5); ALKALINE PHOSPHATASE 90 IU/L (46-116); ANION GAP 23 (8-16); ASPARTATE AMINO TRANSFERASE 207 U/L (10-37); BILIRUBIN,TOTAL 2.2 MG/DL (0.1-1.0); BLOOD UREA NITROGEN 43 MG/DL (7-18); BUN/CREATININE RATIO 13.4 (10.0-20.0); CALCIUM 8.1 MG/DL (8.5-10.1); CHLORIDE 105 MMOL/L (99-107); CREATININE 3.22 MG/DL (0.40-0.90); GLUCOSE 83 MG/DL (70-104); MAGNESIUM 2.4 MG/DL (1.5-2.4); PHOSPHORUS 7.6 MG/DL (2.3-4.5); POTASSIUM 4.7 MMOL/L (3.5-5.1); SODIUM 145 MMOL/L (135-145); TOTAL CARBON DIOXIDE 17.4 MMOL/L (24-32); TOTAL PROTEIN 6.6 G/DL (6.4-8.2); eCRCL 16 ML/MIN; eGFR 15 ML/MIN
[2023-12-01 02:50] LABS: HEMATOCRIT 31.9 % (35.0-45.0); MEAN CORPUSCULAR HEMOGLOBIN 27.7 PG (27.0-31.0); MEAN CORPUSCULAR HGB CONC 31.4 g/dL (33.0-36.5); MEAN CORPUSCULAR VOLUME 88.2 FL (78-98); RED BLOOD COUNT 3.62 X10'6 (4.20-5.60); RED CELL DISTRIBUTION WIDTH 20.2 % (11.5-14.5)
[2023-12-01 02:53] LABS: ANISOCYTOSIS 3+; BURR CELLS FEW; HYPOCHROMASIA 1+; NUCLEATED RED BLOOD CELLS 14 /100WBC (0-0); PLATELET ESTIMATE NORMAL; POLYCHROMASIA FEW; TARGET CELLS FEW; TOTAL CELLS COUNTED 100
[2023-12-01 03:52] LABS: ABG BASE EXCESS -11.5 mmol/L (-2.0-2.0); ABG OXYGEN SATURATION 96.5 % (94-97); ABG PH (T) 7.229 (7.350-7.450); ABG PO2 (T) 99.9 mmHg (75.0-100.0); FCOHb 0.2 % (0.0-3.9); FHHb 3.5 % (0.0-5.0); FMetHb 0.3 % (0.0-1.5); MODE PRVC; PATIENT TEMPERATURE 37.4; PEEP 8 cm H2O; RESPIRATORY RATE 25 b/min; TIDAL VOLUME 400 mL; TOTAL HEMOGLOBIN 10.1 G/dl (12.0-16.0)
[2023-12-01] MEDS ORDERED: epiNEPHrine 10 MG in NS 250ml IV SOLUTION IV SCH (05:25)
[2023-12-01] MEDS: epiNEPHrine 10 MG in NS 250ml IV SOLUTION IV SCH (06:00)
[2023-12-01] MEDS ORDERED: albumin (human) 25% 100ml IV 100 ML in normal saline 500ml IV soln 400 ML IV SCH (08:00)
[2023-12-01] MEDS: dextrose 50%-water 50ml dispensing syringe IV ONE (08:55)
[2023-12-01 09:07] LABS: ALBUMIN 4.2 G/DL (3.4-5.0); ANION GAP 24 (8-16); BLOOD UREA NITROGEN 45 MG/DL (7-18); BUN/CREATININE RATIO 13.7 (10.0-20.0); CALCIUM 8.3 MG/DL (8.5-10.1); CHLORIDE 105 MMOL/L (99-107); CREATININE 3.28 MG/DL (0.40-0.90); GLUCOSE 70 MG/DL (70-104); MAGNESIUM 2.4 MG/DL (1.5-2.4); PHOSPHORUS 7.5 MG/DL (2.3-4.5); POTASSIUM 4.6 MMOL/L (3.5-5.1); SODIUM 146 MMOL/L (135-145); TOTAL CARBON DIOXIDE 16.6 MMOL/L (24-32); eCRCL 16 ML/MIN; eGFR 15 ML/MIN
[2023-12-01] MEDS ORDERED: potassium Cl 40MEQ/270ML bag 270 ML IV PRN (09:15)
[2023-12-01] MEDS ORDERED: calcium chloride inj. 1,000 MG in normal saline 100ml IV soln 100 ML IV PRN (09:15)
[2023-12-01] MEDS ORDERED: sodium phosphate inj. 30 MMOL in dextrose 5%-water 250 ML IV PRN (09:15)
[2023-12-01] MEDS ORDERED: Duosol 4K/3 Ca (w/calcium) 5,000 ML HE SCH (09:15)
[2023-12-01] MEDS ORDERED: magnesium 4gm in 100ml NS 100 ML IV PRN (09:15)
[2023-12-01] MEDS ORDERED: vasopressin inj. 40 UNIT in dextrose 5%-water 50ml 38 ML IV SCH (09:35)
[2023-12-01 11:02] LABS: BILIRUBIN,URINE NEGATIVE (Neg); CLARITY,URINE CLOUDY (Clear); COLOR,URINE YELLOW (Yellow); GLUCOSE, URINE NEGATIVE (Neg); KETONES,URINE NEGATIVE (Neg); LEUKOCYTE ESTERASE ,URINE SMALL (Neg); NITRITES, URINE NEGATIVE (Neg); OCCULT BLOOD,URINE LARGE (Neg); PH,URINE 5.5 (4.8-8.0); PROTEIN,URINE 100 mg/dl (Neg); UROBILINOGEN,URINE 0.2 E.U/dL (0.2-1.0)
[2023-12-01 11:17] LABS: UA COLLECTION TYPE FOLEY CATH
[2023-12-01 11:18] LABS: MUCUS STRANDS FEW /LPF (Neg); RBC,URINE 50-100 /HPF (0-2); SQUAMOUS EPITHELIAL CELL,UR MODERATE /LPF (FEW); TRANSITIONAL EPI CELLS,URINE MODERATE /HPF
[2023-12-01 11:19] LABS: FINE GRANULAR CAST 0-3 /LPF (NEGATIVE); WBC,URINE 50-100 /HPF (0-4)
[2023-12-01 11:20] LABS: COARSE GRANULAR CAST 0-3 /LPF (NEGATIVE)
[2023-12-01 11:23] LABS: AMORPHOUS URATES 2+; BACTERIA,URINE 1+ /HPF (Neg)
[2023-12-01 11:38] LABS: TOTAL PROTEIN,URINE RANDOM 277.6 MG/DL
[2023-12-01 12:21] LABS: UA EOSINOPHILS NO EOS /HPF
[2023-12-01 14:08] LABS: ABG BASE EXCESS -13.5 mmol/L (-2.0-2.0); ABG HCO3 14.5 mmol/L (22.0-26.0); ABG OXYGEN SATURATION 91.6 % (94-97); ABG PCO2 (T) 45.3 mmHg (32.0-45.0); ABG PH (T) 7.135 (7.350-7.450); ABG PO2 (T) 93.4 mmHg (75.0-100.0); FCOHb 0.1 % (0.0-3.9); FHHb 8.4 % (0.0-5.0); FMetHb 0.4 % (0.0-1.5); FO2Hb 91.1 % (94-97); MODE PRVC; PATIENT TEMPERATURE 38.9; PEEP 8 cm H2O; RESPIRATORY RATE 25 b/min; TIDAL VOLUME 400 mL; TOTAL HEMOGLOBIN 11.5 G/dl (12.0-16.0)
[2023-12-01] MEDS: mineral oil/petrolatum ophthal oint EACHEYE SCH (14:46)
[2023-12-01] MEDS ORDERED: CEPH250C PO (15:11)
[2023-12-01] MEDS ORDERED: CARV-50 PO (15:12)
[2023-12-01] MEDS ORDERED: acetaminophen 325mg/10.15ml oral unit dose solution NG PRN ×3 (15:13→15:14)
[2023-12-01] MEDS ORDERED: POTASSIUM BICARB 20meq eff tab 20 MEQ TABLET.EFF NG PRN ×2 (15:15→15:16)
[2023-12-01] MEDS ORDERED: magnesium hydroxide 30ml (MOM) UD suspension NG PRN (15:15)
[2023-12-01] MEDS ORDERED: mag hydrox/Alum hydrox/simeth 30ml oral suspension NG PRN (15:15)
[2023-12-01] MEDS: BICARB DIALYSIS 4K/3 Ca2+sol 5,000 ML HE SCH (17:19)
[2023-12-01 18:34] LABS: PLATELET COUNT 184 X10'3 (140-440)
[2023-12-01 18:36] LABS: BASOPHILS # (AUTO) 0.1 X10'3 (0-0.2); BASOPHILS % (AUTO) 0.9 % (0-1); EOSINOPHILS % (AUTO) 0 % (0-6); HEMATOCRIT 31.8 % (35.0-45.0); HEMOGLOBIN 9.6 g/dl (12.0-16.0); LYMPHOCYTES # (AUTO) 1.4 X10'3 (1.1-4.8); MEAN CORPUSCULAR HEMOGLOBIN 27.6 PG (27.0-31.0); MEAN CORPUSCULAR HGB CONC 30.4 g/dL (33.0-36.5); MONOCYTES % (AUTO) 7.4 % (2-12); NEUTROPHILS # (AUTO) 10.5 X10'3 (1.8-7.7); NEUTROPHILS % (AUTO) 80.7 % (42-75); RED BLOOD COUNT 3.49 X10'6 (4.20-5.60); RED CELL DISTRIBUTION WIDTH 20.8 % (11.5-14.5)
[2023-12-01 18:45] LABS: ALBUMIN 3.8 G/DL (3.4-5.0); ANION GAP 19 (8-16); BLOOD UREA NITROGEN 43 MG/DL (7-18); BUN/CREATININE RATIO 13.8 (10.0-20.0); CALCIUM CVVH 8.8 MG/DL (8.5-10.1); CHLORIDE 108 MMOL/L (99-107); CREATININE 3.12 MG/DL (0.40-0.90); GLUCOSE 84 MG/DL (70-104); MAGNESIUM 2.3 MG/DL (1.5-2.4); PHOSPHORUS 6.1 MG/DL (2.3-4.5); POTASSIUM 4.7 MMOL/L (3.5-5.1); SODIUM 146 MMOL/L (135-145); TOTAL CARBON DIOXIDE 18.9 MMOL/L (24-32); eGFR 16 ML/MIN
[2023-12-01 19:52] LABS: BASOPHILS # (AUTO) 0.1 X10'3 (0-0.2); BASOPHILS % (AUTO) 0.4 % (0-1); EOSINOPHILS % (AUTO) 0 % (0-6); HEMATOCRIT 32.5 % (35.0-45.0); LYMPHOCYTES # (AUTO) 1.7 X10'3 (1.1-4.8); LYMPHOCYTES % (AUTO) 12.3 % (21-51); MEAN CORPUSCULAR HEMOGLOBIN 27.9 PG (27.0-31.0); MEAN CORPUSCULAR HGB CONC 30.7 g/dL (33.0-36.5); MEAN CORPUSCULAR VOLUME 91.1 FL (78-98); MEAN PLATELET VOLUME 8.9 FL (7.4-10.4); MONOCYTES # (AUTO) 0.9 X10'3 (0-0.9); MONOCYTES % (AUTO) 6.9 % (2-12); NEUTROPHILS # (AUTO) 10.8 X10'3 (1.8-7.7); NEUTROPHILS % (AUTO) 80.4 % (42-75); PLATELET COUNT 189 X10'3 (140-440); RED BLOOD COUNT 3.57 X10'6 (4.20-5.60); RED CELL DISTRIBUTION WIDTH 20.5 % (11.5-14.5); WHITE BLOOD COUNT 13.5 X10'3 (4.5-11.0)
[2023-12-01] MEDS: docusate sodium 100mg/10ml UD cup NG SCH (20:00)
[2023-12-01 20:05] LABS: NUCLEATED RED BLOOD CELLS 26 /100WBC (0-0); TOTAL CELLS COUNTED 100
[2023-12-01 20:06] LABS: ANISOCYTOSIS 3+; PLATELET ESTIMATE NORMAL
[2023-12-01 20:08] LABS: ANION GAP 15 (8-16); BLOOD UREA NITROGEN 32 MG/DL (7-18); CALCIUM CVVH 8.8 MG/DL (8.5-10.1); CHLORIDE 107 MMOL/L (99-107); CREATININE 2.28 MG/DL (0.40-0.90); GLUCOSE 83 MG/DL (70-104); MAGNESIUM 1.9 MG/DL (1.5-2.4); PHOSPHORUS 4.6 MG/DL (2.3-4.5); POTASSIUM 4.4 MMOL/L (3.5-5.1); SODIUM 144 MMOL/L (135-145); TOTAL CARBON DIOXIDE 22.3 MMOL/L (24-32); eGFR 23 ML/MIN
[2023-12-01 20:08] LABS: HYPOCHROMASIA 1+; SCHISTOCYTES FEW
[2023-12-01 20:09] LABS: LARGE PLATELETS FEW; TARGET CELLS FEW
[2023-12-01 20:10] LABS: POLYCHROMASIA FEW
[2023-12-01] MEDS: piperacillin/tazo 3.375gm/50ml 50 ML IV SCH (20:24)
[2023-12-01 21:35] LABS: EOSINOPHILS % (AUTO) 0 % (0-6); MEAN CORPUSCULAR HEMOGLOBIN 27.8 PG (27.0-31.0); RED BLOOD COUNT 3.66 X10'6 (4.20-5.60)
[2023-12-01 21:36] LABS: BASOPHILS # (AUTO) 0.1 X10'3 (0-0.2); BASOPHILS % (AUTO) 0.4 % (0-1); HEMATOCRIT 33.6 % (35.0-45.0); HEMOGLOBIN 10.2 g/dl (12.0-16.0); LYMPHOCYTES # (AUTO) 2.2 X10'3 (1.1-4.8); LYMPHOCYTES % (AUTO) 16.7 % (21-51); MEAN CORPUSCULAR HGB CONC 30.2 g/dL (33.0-36.5); MEAN PLATELET VOLUME 9.1 FL (7.4-10.4); MONOCYTES # (AUTO) 0.8 X10'3 (0-0.9); MONOCYTES % (AUTO) 6.1 % (2-12); NEUTROPHILS # (AUTO) 10.3 X10'3 (1.8-7.7); NEUTROPHILS % (AUTO) 76.8 % (42-75); PLATELET COUNT 196 X10'3 (140-440); RED CELL DISTRIBUTION WIDTH 20.7 % (11.5-14.5); WHITE BLOOD COUNT 13.4 X10'3 (4.5-11.0)
[2023-12-01 21:43] LABS: ANION GAP 17 (8-16); BLOOD UREA NITROGEN 28 MG/DL (7-18); BUN/CREATININE RATIO 13.3 (10.0-20.0); CALCIUM CVVH 8.6 MG/DL (8.5-10.1); CHLORIDE 106 MMOL/L (99-107); GLUCOSE 66 MG/DL (70-104); POTASSIUM 4.4 MMOL/L (3.5-5.1); SODIUM 143 MMOL/L (135-145); TOTAL CARBON DIOXIDE 20.4 MMOL/L (24-32); eGFR 25 ML/MIN
[2023-12-01] MEDS: dextrose 50%-water 50ml dispensing syringe IV PRN (22:28)
[2023-12-01 23:01] LABS: ABG BASE EXCESS -12.8 mmol/L (-2.0-2.0); ABG HCO3 14.6 mmol/L (22.0-26.0); ABG OXYGEN SATURATION 95.2 % (94-97); ABG PCO2 (T) 36.7 mmHg (32.0-45.0); ABG PO2 (T) 86.2 mmHg (75.0-100.0); FCOHb 0.5 % (0.0-3.9); FHHb 4.8 % (0.0-5.0); FMetHb 0.3 % (0.0-1.5); FO2Hb 94.4 % (94-97); PATIENT TEMPERATURE 35.3; PEEP 8 cm H2O; RESPIRATORY RATE 25 b/min; TIDAL VOLUME 400 mL
[2023-12-01 23:28] LABS: EOSINOPHILS % (AUTO) 0 % (0-6)
[2023-12-01 23:29] LABS: BASOPHILS % (AUTO) 0.4 % (0-1); HEMOGLOBIN 10.2 g/dl (12.0-16.0); LYMPHOCYTES # (AUTO) 1.2 X10'3 (1.1-4.8); LYMPHOCYTES % (AUTO) 10.1 % (21-51); MEAN CORPUSCULAR HEMOGLOBIN 28.5 PG (27.0-31.0); MEAN CORPUSCULAR HGB CONC 30.9 g/dL (33.0-36.5); MEAN CORPUSCULAR VOLUME 92.2 FL (78-98); MEAN PLATELET VOLUME 8.7 FL (7.4-10.4); MONOCYTES # (AUTO) 0.7 X10'3 (0-0.9); NEUTROPHILS # (AUTO) 9.8 X10'3 (1.8-7.7); NEUTROPHILS % (AUTO) 83.5 % (42-75); PLATELET COUNT 179 X10'3 (140-440); RED BLOOD COUNT 3.58 X10'6 (4.20-5.60); RED CELL DISTRIBUTION WIDTH 20.9 % (11.5-14.5); WHITE BLOOD COUNT 11.8 X10'3 (4.5-11.0)
[2023-12-01 23:43] LABS: ANION GAP 16 (8-16); BLOOD UREA NITROGEN 27 MG/DL (7-18); BUN/CREATININE RATIO 13.2 (10.0-20.0); CALCIUM CVVH 8.4 MG/DL (8.5-10.1); CHLORIDE 106 MMOL/L (99-107); CREATININE 2.05 MG/DL (0.40-0.90); GLUCOSE 113 MG/DL (70-104); PHOSPHORUS 4.5 MG/DL (2.3-4.5); POTASSIUM 4.4 MMOL/L (3.5-5.1); SODIUM 143 MMOL/L (135-145); TOTAL CARBON DIOXIDE 20.8 MMOL/L (24-32); eGFR 26 ML/MIN
[2023-12-01] MEDS: hydrocortisone sod succ/PF 100mg/2ml inj. IV SCH (23:49)
[2023-12-01] MEDS: sodium bicarbonate (8.4%) 1 mEq/ml syringe IV ONE (23:49)
[2023-12-02] VITALS: BP 166/101; PULSE 70; RESP 25; O2SAT 97
[2023-12-02] MEDS ORDERED: DOPamine 400mg/D5W 250ml 250 ML IV ONE (00:30)
[2023-12-02] MEDS ORDERED: normal saline 1000ml 1,000 ML IV ONE (00:50)
[2023-12-02] MEDS ORDERED: hydrocortisone sod succ/PF 100mg/2ml inj. IV ONE (00:55)
[2023-12-02 01:01] LABS: ABG BASE EXCESS -17.9 mmol/L (-2.0-2.0); ABG HCO3 11.6 mmol/L (22.0-26.0); ABG OXYGEN SATURATION 71.9 % (94-97); ABG PCO2 (T) 40.5 mmHg (32.0-45.0); ABG PH (T) 7.065 (7.350-7.450); FCOHb 0.3 % (0.0-3.9); FHHb 27.9 % (0.0-5.0); FMetHb 0.3 % (0.0-1.5); FO2Hb 71.5 % (94-97); MODE AMBU BAG; PATIENT TEMPERATURE 35.5; TOTAL HEMOGLOBIN 8.8 G/dl (12.0-16.0)
[2023-12-02 01:12] VITALS: BP_SYST 0; PULSE 0; RESP 0; O2SAT 0
== END 2023-12-02 03:14 | DRG 710 ==
LOC: ER 22:15 → UNDOADMIN 11-30 04:46 → ED HOLD 11-30 04:46 → CICU 2S 11-30 13:10
PROVIDERS: ADMIT Internal Medicine Critical Care Medicine; ATTEND Internal Medicine
PROC: 0DU907Z Supplement Duodenum with Autologous Tissue Substitute, Open Approach (ICD-10-PCS; 2023-11-30)
PROC: 5A09357 Assistance with Respiratory Ventilation, Less than 24 Consecutive Hours, Continuous Positive Airway Pressure (ICD-10-PCS; 2023-11-30)
PROC: 02HV33Z Insertion of Infusion Device into Superior Vena Cava, Percutaneous Approach (ICD-10-PCS; principal; 2023-12-01)
PROC: B548ZZA Ultrasonography of Superior Vena Cava, Guidance (ICD-10-PCS; 2023-12-01)
PROC: 5A1D90Z Performance of Urinary Filtration, Continuous, Greater than 18 hours Per Day (ICD-10-PCS; 2023-12-01)
PROC: 5A12012 Performance of Cardiac Output, Single, Manual (ICD-10-PCS; 2023-12-02)
DX: A41.9 Sepsis, unspecified organism (principal); J96.21 Acute and chronic respiratory failure with hypoxia; N17.0 Acute kidney failure with tubular necrosis; K26.6 Chronic or unspecified duodenal ulcer with both hemorrhage and perforation; I27.21 Secondary pulmonary arterial hypertension; R65.21 Severe sepsis with septic shock; E87.20 Acidosis, unspecified; I46.9 Cardiac arrest, cause unspecified; I13.0 Hypertensive heart and chronic kidney disease with heart failure and stage 1 through stage 4 chronic kidney disease, or unspecified chronic kidney disease; I27.81 Cor pulmonale (chronic); I42.7 Cardiomyopathy due to drug and external agent; I50.813 Acute on chronic right heart failure; M10.9 Gout, unspecified; I89.0 Lymphedema, not elsewhere classified; I36.1 Nonrheumatic tricuspid (valve) insufficiency; I50.33 Acute on chronic diastolic (congestive) heart failure; Z20.822 Contact with and (suspected) exposure to COVID-19; N18.30 Chronic kidney disease, stage 3 unspecified; E03.9 Hypothyroidism, unspecified; E66.9 Obesity, unspecified; F15.10 Other stimulant abuse, uncomplicated; E78.00 Pure hypercholesterolemia, unspecified; E86.1 Hypovolemia; Z82.5 Family history of asthma and other chronic lower respiratory diseases; Z68.38 Body mass index [BMI] 38.0-38.9, adult; Z88.6 Allergy status to analgesic agent; Z88.8 Allergy status to other drugs, medicaments and biological substances; Z90.49 Acquired absence of other specified parts of digestive tract; Z87.891 Personal history of nicotine dependence
CPT/HCPCS: 36415; 36600; 71045; 74176; 76770; 80047; 80048; 80053; 80069; 80305; 81001; 82570; 82803; 82948; 83605; 83735; 83880; 84100; 84145; 84156; 84300; 84484; 85007; 85018; 85025; 86677; 86885; 86900; 86901; 87040; 87070; 87075; 87081; 87088; 87207; 87502; 87503; 87634; 87811; 93005; 94002; 94003; 94660; 94760; 96365; 96375; 99285; A4314; A4615; A4618; A4620; A6196; A6213; A6253; A6258; A6407; A6446; A6449; A7000; C1751; C1752; C1758; C9113; E1594; G0378; J0131; J0171; J0694; J0696; J1250; J1265; J1644; J1720; J1940; J2270; J2543; J3010; J3475; J3490; J7030; J7040; J7050; J7070; J7120; P9045; P9047